=== PATIENT | female | born 1945 | race Caucasian/White ===

== ENCOUNTER 2025-01-31 17:02 | Inpatient (IN) ==
--- NOTE | 2025-01-31 17:10 | Emergency Department Note ---
Impression & Plan Fall from standing, Multiple fractures of ribs, Intractable pain ED Provider Note HISTORY OF PRESENT ILLNESS: Patient is a 79-year-old female presenting with left posterior rib pain and left flank pain after a fall. Patient reports she was in the bathroom and gotten up from the toilet when she lost her footing secondary to her shoe and fell, landing and striking the left side of her body on the commode. Denies striking her head or loss of consciousness. She is not on anticoagulation or antiplatelet therapy. She had significant excruciating pain in her left flank and family called 911. Patient denies any numbness or tingling down her back. Currently complains of pain in her left lower posterior chest and down her left flank. Patient reports she is from [place] and is currently in town visiting her daughter. ROS: as above PHYSICAL EXAM: Primary Survey Airway: Intact Breathing: Normal, breath sounds equal bilaterally Circulation: Skin warm, distal pulses 2+, capillary refill less than 2 seconds Disability Pupils: Equal and reactive to light, 3 mm, brisk GCS: 15, E = 4, V=5, M= 6 Motor Function: Moves all extremities. Sensory: No deficits Secondary Survey GEN: Well developed and well-nourished HENT: Head: No external signs of trauma. Mouth/Throat: Midface stable. No malocclusion. Eyes: EOMI. Pupils are 3 mm, round and reactive bilaterally. Neck: No midline C-spine tenderness. No step-offs. Cardiovascular: RRR. Pulses present in all 4 extremities. Pulmonary/Chest: BS equal bilaterally. Patient has reproducible tenderness palpation to the left posterior lateral rib cage without any evidence of flail chest. There is some overlying ecchymosis to this area but no underlying hematoma palpable. No palpable free air in the soft tissues of the chest wall. Abdomen: No tenderness or ecchymosis. Musculoskeletal: Pelvis: No instability. Back: No midline tenderness. No step-offs or deformities. Extremities: No gross deformities. No TTP. Skin: No laceration. No abrasion. Neuro: No focal neurological deficits. GCS as above. Psych: Normal mood and affect. MDM: - Vitals signs showed hypertension and tachycardia. - History obtained via patient. History as above. - Chronic conditions affecting care: None - Differential diagnoses include, but are not limited to: pneumothorax; hemothorax; pulmonary contusion; rib fractures; retroperitoneal bleed; liver splenic laceration - Order placed for continuous cardiac monitoring. At this time, monitor showed rate of 95 bpm with normal sinus rhythm, per my interpretation. - External medical records reviewed. - EKG image interpreted by myself showed normal sinus rhythm. Rate 89 bpm. QT 374. No acute ischemic changes. - Laboratory workup interpreted by myself showed slight leukocytosis (WBC 11.21); normal PT/INR; normal electrolytes; normal lipase - CXR image reviewed by myself is negative for pneumothorax, per my interpretation. - Patient initially given 50 mcg IV fentanyl for pain control, but on reassessment she is still complaining of significant pain. Given 4 mg IV Zofran and 0.5 mg of IV Dilaudid. However, about 15 minutes later she is still complaining of significant left-sided pain. She is given 1 mg of IV Dilaudid, but shortly after her oxygen saturation dropped into the 80s and she was placed on 2 L of supplemental oxygen. Her pain was initially well-controlled but then she started to complain of pain again. She is on 1 g of IV Tylenol, 0.5 mg IV Dilaudid and a lidocaine patch. - CT head wo contrast negative for acute intracranial pathology. - CT cervical spine wo contrast negative for acute traumatic injury. - CT chest with IV contrast showed left 7th through 11th rib fractures. No underlying hemothorax or pneumothorax. - CT abdomen/pelvis with IV contrast showed left-sided 10th through 11th posterior rib fractures with fragmentation of the 12th rib level. - Incentive spirometry ordered. - Discussed results with the patient. Discussed that she had 5 consecutive rib fractures, and per trauma protocols it would be recommended that she be transferred to a tertiary care facility for further evaluation and monitoring. However, after discussion of the potential complications of her multiple rib fractures, including development of atelectasis or pneumonia, pneumothorax or hemothorax development, or potential need for surgery, or , the patient declined transfer. She would prefer to be admitted here at [facility] for pain management and further monitoring. She did clearly express and communicate her understanding of the risks of potential complication, and she was still requesting to be admitted here for her pain control and further management. - Given patient's significant number for rib fractures and age, discussed case with ICU PANFILO, Aris Zazueta for admission to ICU for monitoring. - Discussion was had with case supervisor about patient's case and need for admission - Hospitalist, Dr. Casillas, consulted for admission - [facility]. I have personally spent 56 minutes of critical care time in the direct management of this patient. This includes bedside care, interpretation of diagnostic studies, and testing, discussion with consultants, patient, and family members, and other required patient management activities. This 56 minutes is in excess of all separately billable procedures. ASSESSMENT AND PLAN: Diagnosis: fall from standing; multiple rib fractures; intractable pain Plan: admit Past Med/Surg History Problem List (Updated 01/31/25 @ 21:06 by Esperanza De Luna MD) Intractable pain (Acute) Multiple fractures of ribs (Acute) Fall from standing (Acute) Social History Smoking Status: Former smoker Feels Safe at Home: Yes Allergies Allergies Allergy/AdvReac Type Severity Reaction Status Date / Time celecoxib [From Celebrex] Allergy Severe Rash Unverified 01/31/25 18:38 Home Meds Home Medications Medication Instructions Recorded Confirmed citalopram 10 mg tablet 10 mg PO QAM 01/31/25 01/31/25 estradiol 0.01% (0.1 mg/gram) 1 appful vaginal 2XWK 01/31/25 01/31/25 vaginal cream ibuprofen 200 mg tablet (Advil) 200 mg PO Q6H PRN Pain 01/31/25 01/31/25 lisinopril 5 mg tablet 5 mg PO QDL 01/31/25 01/31/25 omeprazole 40 mg capsule,delayed 40 mg PO QAM 01/31/25 01/31/25 release Results & Data (ED) Vital Signs Vital Signs - 24 hr 01/31/25 17:02 01/31/25 17:09 01/31/25 17:10 Temperature 36.8 C Temperature Source Oral Pulse Rate 92 H Pulse Rate from SpO2 Sensor Respiratory Rate 24 Respiratory Effort / Characteristics Non-Labored Spontaneous Respiratory Depth Normal Respiratory Pattern Regular Blood Pressure 163/89 H 163/89 H Blood Pressure Mean 113 105 Pulse Oximetry 95 95 Oxygen Delivery Method Room Air Room Air Oxygen Flow Rate Sepsis Recent Fever Within 48 Hours No Sepsis New/Unexplained Change in Mental Status N/A Sepsis Action Taken by Nursing No Action Required Oxygen Flow Rate - Titration Pulse Oximetry Post Tiitration 01/31/25 17:12 01/31/25 17:23 01/31/25 18:06 Temperature Temperature Source Pulse Rate 92 H 91 H Pulse Rate from SpO2 Sensor 91 H Respiratory Rate 21 Respiratory Effort / Characteristics Respiratory Depth Respiratory Pattern Blood Pressure 154/76 H Blood Pressure Mean 102 Pulse Oximetry 94 Oxygen Delivery Method Room Air Oxygen Flow Rate Sepsis Recent Fever Within 48 Hours Sepsis New/Unexplained Change in Mental Status Sepsis Action Taken by Nursing Oxygen Flow Rate - Titration Pulse Oximetry Post Tiitration 01/31/25 18:30 01/31/25 18:32 01/31/25 18:33 Temperature Temperature Source Pulse Rate 92 H 92 H Pulse Rate from SpO2 Sensor 103 H Respiratory Rate 16 16 Respiratory Effort / Characteristics Respiratory Depth Respiratory Pattern Blood Pressure 117/58 L Blood Pressure Mean 67 Pulse Oximetry 98 86 L 98 Oxygen Delivery Method Nasal Cannula Room Air Oxygen Flow Rate 2 Sepsis Recent Fever Within 48 Hours Sepsis New/Unexplained Change in Mental Status Sepsis Action Taken by Nursing Oxygen Flow Rate - Titration 2 Pulse Oximetry Post Tiitration 98 01/31/25 19:00 01/31/25 19:30 Temperature Temperature Source Pulse Rate 103 H 95 H Pulse Rate from SpO2 Sensor 102 H 95 H Respiratory Rate 18 11 L Respiratory Effort / Characteristics Respiratory Depth Respiratory Pattern Blood Pressure 136/90 107/65 Blood Pressure Mean 105 79 Pulse Oximetry 98 97 Oxygen Delivery Method Nasal Cannula Nasal Cannula Oxygen Flow Rate 2 2 Sepsis Recent Fever Within 48 Hours Sepsis New/Unexplained Change in Mental Status Sepsis Action Taken by Nursing Oxygen Flow Rate - Titration Pulse Oximetry Post Tiitration Laboratory Data 01/31/25 17:12 01/31/25 17:12 Lab Results 01/31/25 01/31/25 Range/Units 17:12 17:16 WBC 11.21 H (4.8-10.8) K/ul RBC 4.16 L (4.20-5.40) M/uL Hgb 13.8 (12.0-16.0) g/dl POC Hgb 14.6 (12.0-16.0) g/dl Hct 40.8 (37.0-47.0) % POC Hct 43 (37-47) % MCV 98.1 (80.0-100.0) fL MCH 33.2 (25.0-34.0) pg MCHC 33.8 (32.0-36.0) g/dL RDW Std Deviation 42.5 (36.4-46.3) fL RDW Coeff of Riley 11.9 (11.5-14.5) % Plt Count 248 (130-400) K/uL MPV 10.2 (9.4-12.4) fL Immature Gran % (Auto) 0.6 % Neut % (Auto) 67.2 % Lymph % (Auto) 24.0 % [place] % (Auto) 6.9 % Eos % (Auto) 0.7 % Baso % (Auto) 0.6 % Neut # (Auto) 7.53 H (1.40-6.50) K/uL Lymph # (Auto) 2.69 (1.20-3.40) K/uL [place] # (Auto) 0.77 H (0.11-0.59) K/uL Eos # (Auto) 0.08 (0.00-0.50) K/uL Baso # (Auto) 0.07 (0.00-0.20) K/uL Immature Gran # (Auto) 0.07 (0.01-0.20) K/uL PT 10.5 (9.0-12.0) Seconds INR 1.0 (0.9-1.1) APTT 21 (21-31) Seconds PTT Ratio 0.8 POC Sodium 135 (135-144) mmol/L Sodium 135 L (136-145) mmol/L POC Potassium 4.0 (3.3-5.0) mmol/L Potassium 4.2 (3.5-5.1) mmol/L POC Chloride 105 (101-112) mmol/L Chloride 100 (98-107) mmol/L Carbon Dioxide 25 (21-32) mmol/L POC Total CO2 22 L (24-31) mmol/L Anion Gap 10 (3-11) POC Anion Gap 13.0 L (16-25) mmol/L POC BUN 24 H (7-18) mg/dl BUN 24 H (6-23) mg/dl Creatinine 0.68 (0.6-1.2) mg/dl POC Creatinine 0.7 (0.6-1.3) mg/dl Est Cr Clr Drug Dosing 64.3 ml/min eGFR 89.64 BUN/Creatinine Ratio 35.3 H (10-20) Glucose 123 H (70-99(Fasting)) mg/dl POC Glucose (other) 121 H (70-99) mg/dl Calcium 9.4 (8.6-10.3) mg/dl POC Ioniz Calcium Maida 1.04 L (1.12-1.32) mmol/l Total Bilirubin 0.4 (0.2-1.0) mg/dl AST 24 (13-39) U/L ALT 14 (7-52) U/L Alkaline Phosphatase 66 (34-104) U/L Total Protein 7.4 (6.0-8.3) gm/dl Albumin 4.4 (3.4-5.0) gm/dl Globulin 3.0 (2.5-4.0) gm/dl Albumin/Globulin Ratio 1.5 (0.9-2) Lipase 50 (11-82) U/L Administered Medications Discontinued Medications Fentanyl Citrate (Fentanyl Citrate Pf 100 Mcg/2 Ml Vial) 50 mcg IV NOW STA Stop: 01/31/25 17:09 Last Admin: 01/31/25 17:19 Dose: 50 mcg Documented By: NATHAN Hydromorphone HCl (Hydromorphone Inj 0.5 Mg/0.5 Ml Syr) 0.5 mg IV NOW STA Stop: 01/31/25 17:36 Last Admin: 01/31/25 17:39 Dose: 0.5 mg Documented By: JAG Hydromorphone HCl (Hydromorphone Inj 1 Mg/Ml Syringe) 1 mg IV NOW STA Stop: 01/31/25 18:12 Last Admin: 01/31/25 18:14 Dose: 1 mg Documented By: GILL Hydromorphone HCl (Hydromorphone Inj 0.5 Mg/0.5 Ml Syr) 0.5 mg IV NOW STA Stop: 01/31/25 20:25 Last Admin: 01/31/25 20:31 Dose: 0.5 mg Documented By: GILL Acetaminophen (Ofirmev) 1,000 mg in 100 mls @ 400 mls/hr IV NOW STA Stop: 01/31/25 20:38 Last Infusion: 01/31/25 21:01 Dose: Infused Documented By: Admin: 01/31/25 20:31 Dose: 400 mls/hr Documented By: GILL Ioversol (Optiray 320 100ml) 93 ml IV ONCE ONE Stop: 01/31/25 18:00 Last Admin: 01/31/25 17:59 Dose: 93 ml Documented By: YUE Lidocaine (Lidocaine 5% 1 Patch) 1 patch TD NOW STA Stop: 01/31/25 20:25 Last Admin: 01/31/25 20:31 Dose: 1 patch Documented By: GILL Ondansetron HCl (Ondansetron Inj 2 Mg/Ml 2 Ml Vial) 4 mg IV NOW STA Stop: 01/31/25 17:36 Last Admin: 01/31/25 17:39 Dose: 4 mg Documented By: JAG Imaging Data Radiologist's Impression: Abdomen/Pelvis CT 01/31/25 17:09 EXAM: CT abd pelvis IV con only CLINICAL HISTORY: Trauma TECHNIQUE: CT of the abdomen and pelvis was performed without and with 93 ml optiray 320 contrast, with the following protocol: axial images, and reconstructed coronal and sagittal images. One of the following dose reduction techniques was utilized for this exam: Automated exposure control, adjustment of the mA and/or kV according to patient size, and use of iterative reconstruction. COMPARISON: None. FINDINGS: Abdomen: Liver: Mildly enlarged in size (18 cm in right lobe span), no focal lesion noted. No focal lesions, cysts, or masses were identified. Hepatic vasculature and biliary ducts are unremarkable. Gallbladder and Biliary System: The gallbladder is normal in size and shape. No wall thickening, pericholecystic fluid, or gallstones were identified. The common bile duct is normal in caliber without dilation. Pancreas: Pancreatic head, body, and tail are visualized and appear normal in size and density. No pancreatic masses or calcifications were noted. The pancreatic duct is not dilated. Spleen: Normal in size, shape, and density. No splenic lesions or masses were identified. Appendix: The appendix is normal in size without periappendiceal fat stranding and without an appendicolith. No evidence of appendiceal abscess or perforation. Kidneys and Adrenal Glands: Both kidneys are normal in size, shape, and position. Cortical thickness is within normal limits. No renal calculi or hydronephrosis. Nodular thickening of the left adrenal gland was noted. A small umbilical hernia harboring omental fat was noted. Pelvis: Urinary Bladder: Normal in contour and wall thickness. No intraluminal lesions identified. Uterus: Normal in size and contour. No masses or abnormal thickening. Ovaries: Not well visualized, but no gross abnormalities noted. Vagina: Vaginal pessary ring noted. Peritoneal and Retroperitoneal Structures: No free fluid or abnormal fluid collections were identified within the abdomen or pelvis. No lymphadenopathy was noted. Bowel: Multiple colonic diverticulosis with no signs of diverticulitis noted. Large duodenal diverticulum related to the third part of the duodenum with an air-fluid level noted. Mild proximal jejunal loop dilation reaching 29 mm in cross-section with no obstructing mass depicted. Bones and Soft Tissues: Left T12, T11, and T10 posterior rib fractures with fragmentation at the T12 level noted. Moderate spondylosis of the lumbar spine with marginal osteophytosis and right-sided scoliosis noted. Pelvic bones and soft tissues are unremarkable. No fractures or abnormal masses were identified. Minimal left-sided pleural effusion noted. IMPRESSION: 1. Left T12, T11, and T10 posterior rib fractures with fragmentation at the T12 level noted. 2. Moderate spondylosis of the lumbar spine with marginal osteophytosis and right-sided scoliosis noted. 3. Mild hepatomegaly noted. 4. Colonic diverticulosis with no signs of diverticulitis. 5. Evidence of duodenal diverticulum related to the 3rd part of the duodenum. Electronically signed by Kwabena Severino 01-31-2025 7:[address] 01/31/25 17:09 EXAM: CT cervical spine wo con CLINICAL HISTORY: Trauma. TECHNIQUE: CT scan of the cervical spine was performed without the administration of intravenous contrast. Contiguous axial images were obtained from the skull base to the upper thoracic spine. Coronal and sagittal reformatted images were also reviewed. One of the following dose reduction techniques was utilized for this exam. Automated exposure control, adjustment of the mA and/or kV according to patient size, and use of iterative reconstruction. COMPARISON: No previous studies are available for comparison. FINDINGS: Vertebrae: Marked spondylosis of the cervical spine noted. The vertebral bodies are normal in height and alignment. No evidence of acute fracture or dislocation. The cortical and trabecular bone patterns are normal. No signs of lytic or sclerotic lesions. Normal configuration of the posterior elements. Intervertebral Discs: C3-4 mild posterolateral disc/osteophyte protrusion is seen abutting the ventral theca with mild left side exit neural foraminal encroachment. C4-5 mild posterolateral disc/osteophyte protrusion is seen abutting the ventral theca with mild left side exit neural foraminal encroachment. C5-6 posterior disc/osteophyte protrusion is seen abutting the ventral theca with mild to moderate bilateral exit neural foraminal encroachment. C6-7 posterior disc/osteophyte protrusion abutting the ventral theca with right side exit neural foraminal compromise. 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 Neural Foramina: The neural foramina are patent bilaterally at all levels. No evidence of foraminal narrowing or nerve root compression. Prevertebral Soft Tissues: The prevertebral soft tissues are normal in thickness without evidence of mass or abnormal fluid collection. Additional Findings: No other significant findings are noted in the visualized soft tissue structures or bony elements. IMPRESSION: 1. Marked spondylolysis of the cervical spine. 2. Multilevel degenerative disc protrusions noted. 3. 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 4. No acute fracture. Electronically signed by Kwabena Severino 01-31-2025 7:[address] 01/31/25 17:09 EXAM: CT chest diagnostic w con CLINICAL HISTORY: Trauma. TECHNIQUE: Contiguous 3.[address] images of the chest were acquired with administration of 93ml Opitray-320mg/ml intravenous contrast. Coronal and sagittal reconstructions were obtained. One of the following dose reduction techniques was utilized for this exam: Automated exposure control, adjustment of the mA and/or kV according to patient size, and use of iterative reconstruction COMPARISON: 01/31/2025 16:26:00 LEACHER CXR. FINDINGS: Lungs: Lungs are clear with no evidence of consolidation, collapse, or focal lesions. No ground-glass opacities or interstitial changes. Mediastinum: No mediastinal mass or abnormal lymphadenopathy. Normal appearance of the thymus. Hilar Structures: Normal size and configuration, no enlargement. Heart and Great Vessels: Normal heart size and configuration. No pericardial effusion. Normal caliber and course of the thoracic aorta and other great vessels. No significant atherosclerosis or aneurysm. Normal enhancement of the great vessels post-contrast. Pulmonary Arteries: No evidence of pulmonary embolism. Normal size and course of the pulmonary arteries. Esophagus: Normal course and caliber. No masses or dilatation. Bones: No fractures or lytic/sclerotic lesions. Normal bone density and alignment. No evidence of rib fractures. Chest Wall: Left posterior ninth rib incomplete fracture Simple displaced fracture of the left posterior and the lateral 10th and 11th ribs. Left lateral 7th and 8th rib nondisplaced fracture. Comminuted fracture of the left posterior 11th rib near the transverse vertebral process . Left anterior 3rd to 5th ribs old healed fractures. Mild spondylosis of the scanned vertebrae. Upper Abdomen: Visualized portions of the liver, spleen, pancreas, adrenal glands, and kidneys are normal. No abnormalities noted in the visualized upper abdominal organs. Thyroid: Normal size and morphology. No nodules or masses. IMPRESSION: 1. Left posterior ninth rib incomplete fracture. 2. Simple displaced fracture of the left posterior and the lateral 10th and 11th ribs. 3. Left lateral 7th and 8th rib nondisplaced fracture. 4. Comminuted fracture of the left posterior 11th rib near the transverse vertebral process. 5. Left pleural mild thickening. 6. The CT confirms and details the CXR findings. Electronically signed by Kwabena Severino 01-31-2025 7:51 PM Chest X-Ray 01/31/25 17:09 EXAM: XR chest 1V portable CLINICAL HISTORY: Trauma TECHNIQUE: An X-ray image of the chest is obtained in AP projection. COMPARISON: No prior studies are available for comparison. FINDINGS: Pulmonary Parenchyma: Lungs are clear bilaterally. No evidence of consolidation, collapse, or focal opacities. No pulmonary nodules are identified. No evidence of pleural effusion or pleural thickening. Heart and Mediastinum: Heart size and shape are normal. Mild hilar vascular congestion noted No mediastinal widening or masses. No hilar or mediastinal lymphadenopathy. Bony Thorax: Minimally displaced fracture of the left 9th and 10th rib laterally. Intact left shoulder joint arthroplasty noted. Right shoulder degenerative changes noted. Soft Tissues: Soft tissues overlying the chest wall are unremarkable. IMPRESSION: Minimally displaced fracture of the left 9th and 10th rib laterally. DISCLAIMER:A subtle bone abnormality or fracture may not be readily apparent on x-rays, thus clinical correlation and further imaging including follow up CT, MRI, or follow up x-rays are advised as needed. Electronically signed by Kwabena Severino 01-31-2025 6:[address] 01/31/25 17:09 EXAM: CT head/brain wo con CLINICAL HISTORY: trauma. TECHNIQUE: Axial non-contrast CT scan of the brain was performed from the skull base to the high parietal region. One of the following dose reduction techniques were utilized for this exam: Automated exposure control, adjustment of the mA and/or kV according to patient size, use of iterative reconstruction. COMPARISON: None. FINDINGS: Brain Parenchyma: Age-appropriate cortical changes are evident by mildly dilated sulci and ventricles. Accentuated periventricular hypodensity with tiny ill-defined foci seen at the bilateral centrum semioval and watershed areas indicating deep white matter microvascular ischemia. Normal attenuation of the cerebral hemispheres, cerebellum, and brainstem. No evidence of acute infarct, hemorrhage, or mass effect. No abnormal areas of hypo- or hyperattenuation. No evidence of hydrocephalus or ventricular enlargement. No evidence of subarachnoid hemorrhage or extra-axial fluid collections. Cerebellum and Brainstem: No masses, lesions, or areas of abnormal density. Orbits: Normal appearance of the globes, optic nerves, and extraocular muscles. No evidence of orbital masses or abnormal density. Sinuses: Clear paranasal sinuses. No evidence of sinusitis or mucosal thickening. Mastoid Air Cells: Clear mastoid air cells. No evidence of mastoiditis. Skull: Hyperostosis frontalis interna IMPRESSION: 1. No CT signs of intracranial acute traumatic changes. 2. Mild age-appropriate cortical changes with deep white matter microvascular ischemia. Electronically signed by Kwabena Severino 01-31-2025 7:36 PM Discharge Plan Visit Data Chief Complaint: Fall ED Provider: Esperanza De Luna Discharge Problem: Fall from standing, Multiple fractures of ribs, Intractable pain Condition: Serious Forms Stand Alone Forms: [facility] [employer] Prescriptions Prescriptions: No Action citalopram 10 mg tablet 10 mg PO QAM omeprazole 40 mg capsule,delayed release(DR/EC) 40 mg PO QAM ibuprofen [Advil] 200 mg Tablet 200 mg PO Q6H PRN (Reason: Pain) lisinopril 5 mg tablet 5 mg PO QDL estradiol 0.01 % (0.1 mg/gram) Cream 1 appful VAGINAL 2XWK Rx Instructions: Estradiol 0.01% Vag Crm (paraban/PG free) Referrals Referrals: PCP,NO [Primary Care Provider] -
[2025-01-31 17:32] LABS: Hematocrit (blood only) 40.8 % (37.0-47.0); Hemoglobin 13.8 g/dl (12.0-16.0); Immature Granulocytes # (auto) 0.07 K/uL (0.01-0.20); Immature Granulocytes % (auto) 0.6 %; Mean Corpuscular Hemoglobin 33.2 pg (25.0-34.0); Mean Corpuscular Volume 98.1 fL (80.0-100.0); Platelet Count 248 K/uL (130-400); RDW Standard Deviation 42.5 fL (36.4-46.3); Red Blood Count 4.16 M/uL (4.20-5.40); White Blood Count 11.21 K/ul (4.8-10.8)
[2025-01-31] MEDS: HYDROmorphone INJ 0.5 MG/0.5 ML SYR IV STA ×2 (17:39→20:31)
[2025-01-31] MEDS: ONDANSETRON INJ 2 MG/ML 2 ML VIAL IV STA (17:39)
[2025-01-31 17:51] LABS: Alanine Aminotransferase 14.0 U/L (7-52); Albumin Globulin Ratio 1.5 (0.9-2); Alkaline Phosphatase 66.0 U/L (34-104); Anion Gap 10.0 (3-11); Bilirubin,Total 0.4 mg/dl (0.2-1.0); Blood Urea Nitrogen 24.0 mg/dl (6-23); Calcium 9.4 mg/dl (8.6-10.3); Carbon Dioxide 25.0 mmol/L (21-32); Chloride 100.0 mmol/L (98-107); Creatinine Clr Calc Pharmacy 64.3 ml/min; Globulin 3.0 gm/dl (2.5-4.0); Glucose 123.0 mg/dl (70-99(Fasting)); Lipase 50.0 U/L (11-82); Potassium 4.2 mmol/L (3.5-5.1); Sodium 135.0 mmol/L (136-145); Total Protein 7.4 gm/dl (6.0-8.3)
[2025-01-31] MEDS: OPTIRAY 320 100ml IV ONE (17:59)
[2025-01-31 18:05] LABS: INR 1.0 (0.9-1.1); Partial Thromboplastin Time 21 Seconds (21-31); Prothrombin Time 10.5 Seconds (9.0-12.0)
[2025-01-31] MEDS: HYDROmorphone INJ 1 MG/ML SYRINGE IV STA (18:14)
--- NOTE | 2025-01-31 18:42 | XRay Report ---
EXAM: XR chest 1V portable CLINICAL HISTORY: Trauma TECHNIQUE: An X-ray image of the chest is obtained in AP projection. COMPARISON: No prior studies are available for comparison. FINDINGS: Pulmonary Parenchyma: Lungs are clear bilaterally. No evidence of consolidation, collapse, or focal opacities. No pulmonary nodules are identified. No evidence of pleural effusion or pleural thickening. Heart and Mediastinum: Heart size and shape are normal. Mild hilar vascular congestion noted No mediastinal widening or masses. No hilar or mediastinal lymphadenopathy. Bony Thorax: Minimally displaced fracture of the left 9th and 10th rib laterally. Intact left shoulder joint arthroplasty noted. Right shoulder degenerative changes noted. Soft Tissues: Soft tissues overlying the chest wall are unremarkable. IMPRESSION: Minimally displaced fracture of the left 9th and 10th rib laterally. DISCLAIMER:A subtle bone abnormality or fracture may not be readily apparent on x-rays, thus clinical correlation and further imaging including follow up CT, MRI, or follow up x-rays are advised as needed. Electronically signed by Kwabena Severino 01-31-2025 6:41 PM
--- NOTE | 2025-01-31 19:37 | CT Scan Report ---
EXAM: CT head/brain wo con CLINICAL HISTORY: trauma. TECHNIQUE: Axial non-contrast CT scan of the brain was performed from the skull base to the high parietal region. One of the following dose reduction techniques were utilized for this exam: Automated exposure control, adjustment of the mA and/or kV according to patient size, use of iterative reconstruction. COMPARISON: None. FINDINGS: Brain Parenchyma: Age-appropriate cortical changes are evident by mildly dilated sulci and ventricles. Accentuated periventricular hypodensity with tiny ill-defined foci seen at the bilateral centrum semioval and watershed areas indicating deep white matter microvascular ischemia. Normal attenuation of the cerebral hemispheres, cerebellum, and brainstem. No evidence of acute infarct, hemorrhage, or mass effect. No abnormal areas of hypo- or hyperattenuation. No evidence of hydrocephalus or ventricular enlargement. No evidence of subarachnoid hemorrhage or extra-axial fluid collections. Cerebellum and Brainstem: No masses, lesions, or areas of abnormal density. Orbits: Normal appearance of the globes, optic nerves, and extraocular muscles. No evidence of orbital masses or abnormal density. Sinuses: Clear paranasal sinuses. No evidence of sinusitis or mucosal thickening. Mastoid Air Cells: Clear mastoid air cells. No evidence of mastoiditis. Skull: Hyperostosis frontalis interna IMPRESSION: 1. No CT signs of intracranial acute traumatic changes. 2. Mild age-appropriate cortical changes with deep white matter microvascular ischemia. Electronically signed by Kwabena Severino 01-31-2025 7:36 PM
--- NOTE | 2025-01-31 19:51 | CT Scan Report ---
EXAM: CT chest diagnostic w con CLINICAL HISTORY: Trauma. TECHNIQUE: Contiguous 3.[address] images of the chest were acquired with administration of 93ml Opitray-320mg/ml intravenous contrast. Coronal and sagittal reconstructions were obtained. One of the following dose reduction techniques was utilized for this exam: Automated exposure control, adjustment of the mA and/or kV according to patient size, and use of iterative reconstruction COMPARISON: 01/31/2025 16:26:00 [employer] CXR. FINDINGS: Lungs: Lungs are clear with no evidence of consolidation, collapse, or focal lesions. No ground-glass opacities or interstitial changes. Mediastinum: No mediastinal mass or abnormal lymphadenopathy. Normal appearance of the thymus. Hilar Structures: Normal size and configuration, no enlargement. Heart and Great Vessels: Normal heart size and configuration. No pericardial effusion. Normal caliber and course of the thoracic aorta and other great vessels. No significant atherosclerosis or aneurysm. Normal enhancement of the great vessels post-contrast. Pulmonary Arteries: No evidence of pulmonary embolism. Normal size and course of the pulmonary arteries. Esophagus: Normal course and caliber. No masses or dilatation. Bones: No fractures or lytic/sclerotic lesions. Normal bone density and alignment. No evidence of rib fractures. Chest Wall: Left posterior ninth rib incomplete fracture Simple displaced fracture of the left posterior and the lateral 10th and 11th ribs. Left lateral 7th and 8th rib nondisplaced fracture. Comminuted fracture of the left posterior 11th rib near the transverse vertebral process . Left anterior 3rd to 5th ribs old healed fractures. Mild spondylosis of the scanned vertebrae. Upper Abdomen: Visualized portions of the liver, spleen, pancreas, adrenal glands, and kidneys are normal. No abnormalities noted in the visualized upper abdominal organs. Thyroid: Normal size and morphology. No nodules or masses. IMPRESSION: 1. Left posterior ninth rib incomplete fracture. 2. Simple displaced fracture of the left posterior and the lateral 10th and 11th ribs. 3. Left lateral 7th and 8th rib nondisplaced fracture. 4. Comminuted fracture of the left posterior 11th rib near the transverse vertebral process. 5. Left pleural mild thickening. 6. The CT confirms and details the CXR findings. Electronically signed by Kwabena Severino 01-31-2025 7:51 PM
--- NOTE | 2025-01-31 19:52 | CT Scan Report ---
EXAM: CT abd pelvis IV con only CLINICAL HISTORY: Trauma TECHNIQUE: CT of the abdomen and pelvis was performed without and with 93 ml optiray 320 contrast, with the following protocol: axial images, and reconstructed coronal and sagittal images. One of the following dose reduction techniques was utilized for this exam: Automated exposure control, adjustment of the mA and/or kV according to patient size, and use of iterative reconstruction. COMPARISON: None. FINDINGS: Abdomen: Liver: Mildly enlarged in size (18 cm in right lobe span), no focal lesion noted. No focal lesions, cysts, or masses were identified. Hepatic vasculature and biliary ducts are unremarkable. Gallbladder and Biliary System: The gallbladder is normal in size and shape. No wall thickening, pericholecystic fluid, or gallstones were identified. The common bile duct is normal in caliber without dilation. Pancreas: Pancreatic head, body, and tail are visualized and appear normal in size and density. No pancreatic masses or calcifications were noted. The pancreatic duct is not dilated. Spleen: Normal in size, shape, and density. No splenic lesions or masses were identified. Appendix: The appendix is normal in size without periappendiceal fat stranding and without an appendicolith. No evidence of appendiceal abscess or perforation. Kidneys and Adrenal Glands: Both kidneys are normal in size, shape, and position. Cortical thickness is within normal limits. No renal calculi or hydronephrosis. Nodular thickening of the left adrenal gland was noted. A small umbilical hernia harboring omental fat was noted. Pelvis: Urinary Bladder: Normal in contour and wall thickness. No intraluminal lesions identified. Uterus: Normal in size and contour. No masses or abnormal thickening. Ovaries: Not well visualized, but no gross abnormalities noted. Vagina: Vaginal pessary ring noted. Peritoneal and Retroperitoneal Structures: No free fluid or abnormal fluid collections were identified within the abdomen or pelvis. No lymphadenopathy was noted. Bowel: Multiple colonic diverticulosis with no signs of diverticulitis noted. Large duodenal diverticulum related to the third part of the duodenum with an air-fluid level noted. Mild proximal jejunal loop dilation reaching 29 mm in cross-section with no obstructing mass depicted. Bones and Soft Tissues: Left T12, T11, and T10 posterior rib fractures with fragmentation at the T12 level noted. Moderate spondylosis of the lumbar spine with marginal osteophytosis and right-sided scoliosis noted. Pelvic bones and soft tissues are unremarkable. No fractures or abnormal masses were identified. Minimal left-sided pleural effusion noted. IMPRESSION: 1. Left T12, T11, and T10 posterior rib fractures with fragmentation at the T12 level noted. 2. Moderate spondylosis of the lumbar spine with marginal osteophytosis and right-sided scoliosis noted. 3. Mild hepatomegaly noted. 4. Colonic diverticulosis with no signs of diverticulitis. 5. Evidence of duodenal diverticulum related to the 3rd part of the duodenum. Electronically signed by Kwabena Severino 01-31-2025 7:52 PM
--- NOTE | 2025-01-31 19:55 | CT Scan Report ---
EXAM: CT cervical spine wo con CLINICAL HISTORY: Trauma. TECHNIQUE: CT scan of the cervical spine was performed without the administration of intravenous contrast. Contiguous axial images were obtained from the skull base to the upper thoracic spine. Coronal and sagittal reformatted images were also reviewed. One of the following dose reduction techniques was utilized for this exam. Automated exposure control, adjustment of the mA and/or kV according to patient size, and use of iterative reconstruction. COMPARISON: No previous studies are available for comparison. FINDINGS: Vertebrae: Marked spondylosis of the cervical spine noted. The vertebral bodies are normal in height and alignment. No evidence of acute fracture or dislocation. The cortical and trabecular bone patterns are normal. No signs of lytic or sclerotic lesions. Normal configuration of the posterior elements. Intervertebral Discs: C3-4 mild posterolateral disc/osteophyte protrusion is seen abutting the ventral theca with mild left side exit neural foraminal encroachment. C4-5 mild posterolateral disc/osteophyte protrusion is seen abutting the ventral theca with mild left side exit neural foraminal encroachment. C5-6 posterior disc/osteophyte protrusion is seen abutting the ventral theca with mild to moderate bilateral exit neural foraminal encroachment. C6-7 posterior disc/osteophyte protrusion abutting the ventral theca with right side exit neural foraminal compromise. 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 Neural Foramina: The neural foramina are patent bilaterally at all levels. No evidence of foraminal narrowing or nerve root compression. Prevertebral Soft Tissues: The prevertebral soft tissues are normal in thickness without evidence of mass or abnormal fluid collection. Additional Findings: No other significant findings are noted in the visualized soft tissue structures or bony elements. IMPRESSION: 1. Marked spondylolysis of the cervical spine. 2. Multilevel degenerative disc protrusions noted. 3. 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 4. No acute fracture. Electronically signed by Kwabena Severino 01-31-2025 7:53 PM
[2025-01-31] MEDS: LIDOCAINE 5% 1 PATCH TD STA (20:31)
[2025-01-31] MEDS: ACETAMINOPHEN 1,000 MG/100 ML VIAL IV STA (20:31)
--- NOTE | 2025-01-31 21:01 | History & Physical Report ---
Date of Service January 31, 2025 Assessment & Plan (1) Acute hypoxemic respiratory failure: Plan: Assessment and plan below following discussion of case with ED provider and reviewing patient history/pertinent normal/abnormal diagnostic test results. Acute hypoxemic respiratory failure Multiple traumatic left rib fractures hypertension, BP currently stable daily alcohol intake, no obvious concerns as per patient/family Hyperglycemia rule out DM past tobacco abuse Admit to ICU for monitoring Supplemental O2 Baseline VBG Analgesia Encourage incentive spirometry General Surgery consultation re: traumatic left rib fractures (Dr. Peñaloza kindly agreed to to follow patient.) Check hemoglobin A1c PT OT eval DVT prophylaxis. SCDs Re: Traumatic chest wall ecchymosis Full code Patient daughter requesting updates and vitals. Ms. Audelia Austin, contact #[phone]. Text document was generated using [employer] voice recognition software. It may contain grammatical or spelling errors. Kindly contact undersigned for clarification of any documentation item in question. History of Present Illness Chief Complaint: Fall Primary Care Provider: Dr. Kong of [place], [place] History obtained from patient, family, and records. Medical history significant for hypertension, GERD, mood disorder, daily alcohol intake, past tobacco abuse. Patient is a resident of [place], [place] currently visiting daughter who resides locally. Patient lost her footing on her way to the bathroom leading to her falling down and hitting the toilet with the left side of her body. Pleuritic chest pain with some SOB. No hemoptysis. No head trauma or LOC. Patient had trouble getting up from pain. Patient transported to ER by EMS. Patient refused transfer to trauma center for evaluation and management of multiple rib fractures. Lowest O2 sats of 80s documented at the ER. Medical History as above Surgical History : Shoulder surgery, knee surgeries, cosmetic jaw surgery Family History : No heart disease, no DM Personal/Social history : Past tobacco abuse, daily EtOH intake denies abuse; retired schoolteacher Allergies Allergy/AdvReac Type Severity Reaction Status Date / Time celecoxib [From Celebrex] Allergy Severe Rash Unverified 01/31/25 18:38 Home Medications Medication Instructions Recorded Confirmed Type citalopram 10 mg tablet 10 mg PO QAM 01/31/25 01/31/25 History estradiol 0.01% (0.1 mg/gram) 1 appful vaginal 2XWK 01/31/25 01/31/25 History vaginal cream ibuprofen 200 mg tablet (Advil) 200 mg PO Q6H PRN Pain 01/31/25 01/31/25 History lisinopril 5 mg tablet 5 mg PO QDL 01/31/25 01/31/25 History omeprazole 40 mg capsule,delayed 40 mg PO QAM 01/31/25 01/31/25 History release Past Med/Surg History Problem List (Updated 02/01/25 @ 05:52 by Nikunj Casillas MD) Acute hypoxemic respiratory failure Acute pain Intractable pain (Acute) Multiple fractures of ribs (Acute) Fall from standing (Acute) Medical History (Updated 02/01/25 @ 05:52 by Nikunj Casillas MD) Anxiety and depression HTN (hypertension) Surgical History (Updated 02/01/25 @ 00:03 by MARCUS Granados) History of left shoulder replacement Social History Smoking Status: Never smoker Hx Alcohol Use: Yes Alcohol type: wine Hx Substance Use: No Preferred Language: Lao Communication Ability: Effective Conservation Educator Required: No Beliefs That Will Affect Care: None Current Living Situation: Alone Other Information That Helps Us Care for You: No Feels Safe at Home: Yes Safety Concerns: Feels Safe At This Time Assistive Devices: None Review of Systems Review of Systems: As per HPI, all other systems reviewed and negative Physical Exam Physical Exam: GENERAL: Slightly anxious, slightly uncomfortable, no respiratory distress SKIN: Normal color, warm HEENT: [place] palpebral conjunctivae, no ptosis, dry buccal mucosa NECK : Supple, no tenderness CHEST : Decreased breath sounds, left posterior chest wall tenderness HEART : RRR, no obvious murmurs ABDOMEN: Some distention, nontender EXTREMITIES : No LE swelling/tenderness, palpable pulses, no other conspicuous deformities noted NEUROLOGIC : Coherent, no facial asymmetry, no other gross focality Results & Data Results & Data Vital Signs (Past 12 Hours) Vital Signs Temp Pulse Resp BP Pulse Ox O2 Del Method O2 Flow Rate 01/31/25 19:30 95 H 11 L 107/65 97 Nasal Cannula 2 01/31/25 19:00 103 H 18 136/90 98 Nasal Cannula 2 01/31/25 18:33 92 H 16 98 01/31/25 18:32 86 L Room Air 01/31/25 18:30 92 H 16 117/58 L 98 Nasal Cannula 2 01/31/25 18:06 154/76 H 01/31/25 17:23 91 H 01/31/25 17:12 92 H 21 94 Room Air 01/31/25 17:10 163/89 H 01/31/25 17:09 95 Room Air 01/31/25 17:02 36.8 C 92 H 24 163/89 H 95 Room Air Laboratory Results Laboratory Results WBC 11.21 K/ul (4.8-10.8) H 01/31/25 17:12 RBC 4.16 M/uL (4.20-5.40) L 01/31/25 17:12 Hgb 13.8 g/dl (12.0-16.0) 01/31/25 17:12 POC Hgb 14.6 g/dl (12.0-16.0) 01/31/25 17:16 Hct 40.8 % (37.0-47.0) 01/31/25 17:12 POC Hct 43 % (37-47) 01/31/25 17:16 MCV 98.1 fL (80.0-100.0) 01/31/25 17:12 MCH 33.2 pg (25.0-34.0) 01/31/25 17:12 MCHC 33.8 g/dL (32.0-36.0) 01/31/25 17:12 RDW Std Deviation 42.5 fL (36.4-46.3) 01/31/25 17:12 RDW Coeff of Riley 11.9 % (11.5-14.5) 01/31/25 17:12 Plt Count 248 K/uL (130-400) 01/31/25 17:12 MPV 10.2 fL (9.4-12.4) 01/31/25 17:12 Immature Gran % (Auto) 0.6 % 01/31/25 17:12 Neut % (Auto) 67.2 % 01/31/25 17:12 Lymph % (Auto) 24.0 % 01/31/25 17:12 Kimball % (Auto) 6.9 % 01/31/25 17:12 Eos % (Auto) 0.7 % 01/31/25 17:12 Baso % (Auto) 0.6 % 01/31/25 17:12 Neut # (Auto) 7.53 K/uL (1.40-6.50) H 01/31/25 17:12 Lymph # (Auto) 2.69 K/uL (1.20-3.40) 01/31/25 17:12 Kimball # (Auto) 0.77 K/uL (0.11-0.59) H 01/31/25 17:12 Eos # (Auto) 0.08 K/uL (0.00-0.50) 01/31/25 17:12 Baso # (Auto) 0.07 K/uL (0.00-0.20) 01/31/25 17:12 Immature Gran # (Auto) 0.07 K/uL (0.01-0.20) 01/31/25 17:12 PT 10.5 Seconds (9.0-12.0) 01/31/25 17:12 INR 1.0 (0.9-1.1) 01/31/25 17:12 APTT 21 Seconds (21-31) 01/31/25 17:12 PTT Ratio 0.8 01/31/25 17:12 POC Sodium 135 mmol/L (135-144) 01/31/25 17:16 Sodium 135 mmol/L (136-145) L 01/31/25 17:12 POC Potassium 4.0 mmol/L (3.3-5.0) 01/31/25 17:16 Potassium 4.2 mmol/L (3.5-5.1) 01/31/25 17:12 POC Chloride 105 mmol/L (101-112) 01/31/25 17:16 Chloride 100 mmol/L (98-107) 01/31/25 17:12 Carbon Dioxide 25 mmol/L (21-32) 01/31/25 17:12 POC Total CO2 22 mmol/L (24-31) L 01/31/25 17:16 Anion Gap 10 (3-11) 01/31/25 17:12 POC Anion Gap 13.0 mmol/L (16-25) L 01/31/25 17:16 POC BUN 24 mg/dl (7-18) H 01/31/25 17:16 BUN 24 mg/dl (6-23) H 01/31/25 17:12 Creatinine 0.68 mg/dl (0.6-1.2) 01/31/25 17:12 POC Creatinine 0.7 mg/dl (0.6-1.3) 01/31/25 17:16 Est Cr Clr Drug Dosing 64.3 ml/min 01/31/25 17:12 eGFR 89.64 01/31/25 17:12 BUN/Creatinine Ratio 35.3 (10-20) H 01/31/25 17:12 Glucose 123 mg/dl (70-99(Fasting)) H 01/31/25 17:12 POC Glucose (other) 121 mg/dl (70-99) H 01/31/25 17:16 Calcium 9.4 mg/dl (8.6-10.3) 01/31/25 17:12 POC Ioniz Calcium Maida 1.04 mmol/l (1.12-1.32) L 01/31/25 17:16 Total Bilirubin 0.4 mg/dl (0.2-1.0) 01/31/25 17:12 AST 24 U/L (13-39) 01/31/25 17:12 ALT 14 U/L (7-52) 01/31/25 17:12 Alkaline Phosphatase 66 U/L (34-104) 01/31/25 17:12 Total Protein 7.4 gm/dl (6.0-8.3) 01/31/25 17:12 Albumin 4.4 gm/dl (3.4-5.0) 01/31/25 17:12 Globulin 3.0 gm/dl (2.5-4.0) 01/31/25 17:12 Albumin/Globulin Ratio 1.5 (0.9-2) 01/31/25 17:12 Lipase 50 U/L (11-82) 01/31/25 17:12 Impressions Abdomen/Pelvis CT 01/31/25 17:09 EXAM: CT abd pelvis IV con only CLINICAL HISTORY: Trauma TECHNIQUE: CT of the abdomen and pelvis was performed without and with 93 ml optiray 320 contrast, with the following protocol: axial images, and reconstructed coronal and sagittal images. One of the following dose reduction techniques was utilized for this exam: Automated exposure control, adjustment of the mA and/or kV according to patient size, and use of iterative reconstruction. COMPARISON: None. FINDINGS: Abdomen: Liver: Mildly enlarged in size (18 cm in right lobe span), no focal lesion noted. No focal lesions, cysts, or masses were identified. Hepatic vasculature and biliary ducts are unremarkable. Gallbladder and Biliary System: The gallbladder is normal in size and shape. No wall thickening, pericholecystic fluid, or gallstones were identified. The common bile duct is normal in caliber without dilation. Pancreas: Pancreatic head, body, and tail are visualized and appear normal in size and density. No pancreatic masses or calcifications were noted. The pancreatic duct is not dilated. Spleen: Normal in size, shape, and density. No splenic lesions or masses were identified. Appendix: The appendix is normal in size without periappendiceal fat stranding and without an appendicolith. No evidence of appendiceal abscess or perforation. Kidneys and Adrenal Glands: Both kidneys are normal in size, shape, and position. Cortical thickness is within normal limits. No renal calculi or hydronephrosis. Nodular thickening of the left adrenal gland was noted. A small umbilical hernia harboring omental fat was noted. Pelvis: Urinary Bladder: Normal in contour and wall thickness. No intraluminal lesions identified. Uterus: Normal in size and contour. No masses or abnormal thickening. Ovaries: Not well visualized, but no gross abnormalities noted. Vagina: Vaginal pessary ring noted. Peritoneal and Retroperitoneal Structures: No free fluid or abnormal fluid collections were identified within the abdomen or pelvis. No lymphadenopathy was noted. Bowel: Multiple colonic diverticulosis with no signs of diverticulitis noted. Large duodenal diverticulum related to the third part of the duodenum with an air-fluid level noted. Mild proximal jejunal loop dilation reaching 29 mm in cross-section with no obstructing mass depicted. Bones and Soft Tissues: Left T12, T11, and T10 posterior rib fractures with fragmentation at the T12 level noted. Moderate spondylosis of the lumbar spine with marginal osteophytosis and right-sided scoliosis noted. Pelvic bones and soft tissues are unremarkable. No fractures or abnormal masses were identified. Minimal left-sided pleural effusion noted. IMPRESSION: 1. Left T12, T11, and T10 posterior rib fractures with fragmentation at the T12 level noted. 2. Moderate spondylosis of the lumbar spine with marginal osteophytosis and right-sided scoliosis noted. 3. Mild hepatomegaly noted. 4. Colonic diverticulosis with no signs of diverticulitis. 5. Evidence of duodenal diverticulum related to the 3rd part of the duodenum. Electronically signed by Kwabena Severino 01-31-2025 7:[address] 01/31/25 17:09 EXAM: CT cervical spine wo con CLINICAL HISTORY: Trauma. TECHNIQUE: CT scan of the cervical spine was performed without the administration of intravenous contrast. Contiguous axial images were obtained from the skull base to the upper thoracic spine. Coronal and sagittal reformatted images were also reviewed. One of the following dose reduction techniques was utilized for this exam. Automated exposure control, adjustment of the mA and/or kV according to patient size, and use of iterative reconstruction. COMPARISON: No previous studies are available for comparison. FINDINGS: Vertebrae: Marked spondylosis of the cervical spine noted. The vertebral bodies are normal in height and alignment. No evidence of acute fracture or dislocation. The cortical and trabecular bone patterns are normal. No signs of lytic or sclerotic lesions. Normal configuration of the posterior elements. Intervertebral Discs: C3-4 mild posterolateral disc/osteophyte protrusion is seen abutting the ventral theca with mild left side exit neural foraminal encroachment. C4-5 mild posterolateral disc/osteophyte protrusion is seen abutting the ventral theca with mild left side exit neural foraminal encroachment. C5-6 posterior disc/osteophyte protrusion is seen abutting the ventral theca with mild to moderate bilateral exit neural foraminal encroachment. C6-7 posterior disc/osteophyte protrusion abutting the ventral theca with right side exit neural foraminal compromise. 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 Neural Foramina: The neural foramina are patent bilaterally at all levels. No evidence of foraminal narrowing or nerve root compression. Prevertebral Soft Tissues: The prevertebral soft tissues are normal in thickness without evidence of mass or abnormal fluid collection. Additional Findings: No other significant findings are noted in the visualized soft tissue structures or bony elements. IMPRESSION: 1. Marked spondylolysis of the cervical spine. 2. Multilevel degenerative disc protrusions noted. 3. 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 4. No acute fracture. Electronically signed by Kwabena Severino 01-31-2025 7:[address] 01/31/25 17:09 EXAM: CT chest diagnostic w con CLINICAL HISTORY: Trauma. TECHNIQUE: Contiguous 3.[address] images of the chest were acquired with administration of 93ml Opitray-320mg/ml intravenous contrast. Coronal and sagittal reconstructions were obtained. One of the following dose reduction techniques was utilized for this exam: Automated exposure control, adjustment of the mA and/or kV according to patient size, and use of iterative reconstruction COMPARISON: 01/31/2025 16:26:00 VP SOFTWARE ENGINEERING CXR. FINDINGS: Lungs: Lungs are clear with no evidence of consolidation, collapse, or focal lesions. No ground-glass opacities or interstitial changes. Mediastinum: No mediastinal mass or abnormal lymphadenopathy. Normal appearance of the thymus. Hilar Structures: Normal size and configuration, no enlargement. Heart and Great Vessels: Normal heart size and configuration. No pericardial effusion. Normal caliber and course of the thoracic aorta and other great vessels. No significant atherosclerosis or aneurysm. Normal enhancement of the great vessels post-contrast. Pulmonary Arteries: No evidence of pulmonary embolism. Normal size and course of the pulmonary arteries. Esophagus: Normal course and caliber. No masses or dilatation. Bones: No fractures or lytic/sclerotic lesions. Normal bone density and alignment. No evidence of rib fractures. Chest Wall: Left posterior ninth rib incomplete fracture Simple displaced fracture of the left posterior and the lateral 10th and 11th ribs. Left lateral 7th and 8th rib nondisplaced fracture. Comminuted fracture of the left posterior 11th rib near the transverse vertebral process . Left anterior 3rd to 5th ribs old healed fractures. Mild spondylosis of the scanned vertebrae. Upper Abdomen: Visualized portions of the liver, spleen, pancreas, adrenal glands, and kidneys are normal. No abnormalities noted in the visualized upper abdominal organs. Thyroid: Normal size and morphology. No nodules or masses. IMPRESSION: 1. Left posterior ninth rib incomplete fracture. 2. Simple displaced fracture of the left posterior and the lateral 10th and 11th ribs. 3. Left lateral 7th and 8th rib nondisplaced fracture. 4. Comminuted fracture of the left posterior 11th rib near the transverse vertebral process. 5. Left pleural mild thickening. 6. The CT confirms and details the CXR findings. Electronically signed by Kwabena Severino 01-31-2025 7:51 PM Chest X-Ray 01/31/25 17:09 EXAM: XR chest 1V portable CLINICAL HISTORY: Trauma TECHNIQUE: An X-ray image of the chest is obtained in AP projection. COMPARISON: No prior studies are available for comparison. FINDINGS: Pulmonary Parenchyma: Lungs are clear bilaterally. No evidence of consolidation, collapse, or focal opacities. No pulmonary nodules are identified. No evidence of pleural effusion or pleural thickening. Heart and Mediastinum: Heart size and shape are normal. Mild hilar vascular congestion noted No mediastinal widening or masses. No hilar or mediastinal lymphadenopathy. Bony Thorax: Minimally displaced fracture of the left 9th and 10th rib laterally. Intact left shoulder joint arthroplasty noted. Right shoulder degenerative changes noted. Soft Tissues: Soft tissues overlying the chest wall are unremarkable. IMPRESSION: Minimally displaced fracture of the left 9th and 10th rib laterally. DISCLAIMER:A subtle bone abnormality or fracture may not be readily apparent on x-rays, thus clinical correlation and further imaging including follow up CT, MRI, or follow up x-rays are advised as needed. Electronically signed by Kwabena Severino 01-31-2025 6:[address] 01/31/25 17:09 EXAM: CT head/brain wo con CLINICAL HISTORY: trauma. TECHNIQUE: Axial non-contrast CT scan of the brain was performed from the skull base to the high parietal region. One of the following dose reduction techniques were utilized for this exam: Automated exposure control, adjustment of the mA and/or kV according to patient size, use of iterative reconstruction. COMPARISON: None. FINDINGS: Brain Parenchyma: Age-appropriate cortical changes are evident by mildly dilated sulci and ventricles. Accentuated periventricular hypodensity with tiny ill-defined foci seen at the bilateral centrum semioval and watershed areas indicating deep white matter microvascular ischemia. Normal attenuation of the cerebral hemispheres, cerebellum, and brainstem. No evidence of acute infarct, hemorrhage, or mass effect. No abnormal areas of hypo- or hyperattenuation. No evidence of hydrocephalus or ventricular enlargement. No evidence of subarachnoid hemorrhage or extra-axial fluid collections. Cerebellum and Brainstem: No masses, lesions, or areas of abnormal density. Orbits: Normal appearance of the globes, optic nerves, and extraocular muscles. No evidence of orbital masses or abnormal density. Sinuses: Clear paranasal sinuses. No evidence of sinusitis or mucosal thickening. Mastoid Air Cells: Clear mastoid air cells. No evidence of mastoiditis. Skull: Hyperostosis frontalis interna IMPRESSION: 1. No CT signs of intracranial acute traumatic changes. 2. Mild age-appropriate cortical changes with deep white matter microvascular ischemia. Electronically signed by Kwabena Severino 01-31-2025 7:36 PM Diagnostic Findings EKG as per my interpretation :Rate 90, NSR, LAD, LAFB, LVH, no ischemia
[2025-01-31] MEDS: REMOVE LIDODERM PATCH SCH (21:07)
[2025-01-31] MEDS ORDERED: PROMETHAZINE 6.25 MG/50.25 ML BAG IV PRN (21:22)
[2025-01-31] MEDS ORDERED: ACETAMINOPHEN 325 MG TAB PO PRN (21:22)
[2025-01-31 21:26] LABS: Magnesium 1.8 mg/dl (1.7-2.4)
[2025-01-31] MEDS: SODIUM CHLORIDE 0.9% 1,000 ML IV STA (21:45)
[2025-01-31 21:57] LABS: Base Excess VBG -0.2 mEq/L; HCO3 VBG 26 mmol/L; Oxygen Saturation VBG 93.9 %; PCO2 VBG 47 mmHg (38-50); PO2 VBG 68 mmHg; pH VBG 7.35 (7.36-7.41)
[2025-01-31] MEDS: MoRPHine SULFATE 2 MG/ML CARP IV STA (22:28)
--- NOTE | 2025-01-31 22:34 | Communication Note ---
Date of Service: January 31, 2025 This note is for communication purposes. Notified by ER physician (Dr. De Luna) @2029, on patient case with possible admission to the ICU in regards to her multiple contingent rib fractures and comminuted 11th rib fracture. Patient declined transfer to trauma center. Patient was seen and pain is better controlled. Upon discussion with the adm itting service (Dr. Rico) @ 2219, He had already discussed with surgeon mobile application engineer (Dr. Peñaloza) and it was communicated back to me that they are OK with admitting patient to Med/Tele. and no ICU consult has been placed. 2256: Updated by admitting service, patient will come to ICU for admission and ICU consultation will be placed see consult for full plan. Aris VELAZQUEZ (ACNP-)
[2025-01-31] MEDS: MAGNESIUM SULFATE / D5W 1 GM/100 ML BAG IV STA (22:43)
[2025-01-31] MEDS: KETOROLAC TROMETHAMINE 15 MG/ML VIAL IV STA (22:43)
--- NOTE | 2025-02-01 00:03 | Critical Care Consultation ---
Date of Consultation January 31, 2025 Assessment & Plan (1) Multiple fractures of ribs: (2) Acute pain: Plan Reason Critically Ill: 79 YOF with multiple contingent rib fractures and comminuted 11th rib fracture. Admitted to ICU for monitoring of pulmonary status and assistance with pain control. Neuro - Acute pain from rib fractures, contiguous rib fracture 7th-11 [facility] ICU- Negative - Patient declined transfer to trauma center- surgical consultation placed by admitting service - Multimodal pain control- agree with current Tylenol, tiered oxycodone, morphine and lidocaine patch. - will add rescue Narcan - If morphine is not effective consider change to hydromorphone - Consider adding valium of spasms occur - Consider acute/chronic pain evaluation for possible intercostal block - OOB to chair TID or more to allow lung expansion Cardiac - No acute needs, hx of HTN - Continue home Lisinopril Respiratory - Risk for atelectasis/pulmonary contusion/pneumonia in light of rib fractures - ICS x10 every hour while awake - Provide splinting device for left side while performing ICS, moving, Coughing/deep breathing - Oxygen as needed to maintain spo2 >95% - Follow with am chest x-ray GI - No acute needs - diet regular as tolerated - No evidence of splenic injury or bleeding noted on CT abd/pelvis or hemodynamics RENAL/LYTES - No acute needs - ICU electrolyte protocol - No acute needs ENDO - No acute needs HEME - No acute needs - Leukocytosis- mild likely reactionary from trauma - Follow hemoglobin levels and hemodynamics- repeat CT abd/pelvis for any change in light of comminuted 11th rib frx - Transfuse for active bleeding, HGB <7.0 or symptomatic anemia ID - No concern at this time for infectious etiology LINES/IV ACCESS - PIV Continue use of these lines DVT PROPHYLAXIS - SCDS, ambulation- hold on chemoprophy until bleeding is ensured following fall DISPO- ICU until pain control is adequate to allow for adequate oxygenation and ventilation. I have personally spent 35 minutes of critical care time in the direct managem ent of this patient. This is a life/limb threatening event. This includes time spent evaluating patient, direct bedside care, chart review, placing orders, interpretation of diagnostic studies, discussion with consultants, patient, and family members, as well as other required patient management activities. This time is exclusive of all separately billable procedures, and teaching time and separate from and in addition to any other critical care service time. Thank you for allowing us to participate in the care of this patient. Please refer to my attending physician's documentation for any further recommendations. History of Present Illness Reason for Consultation: Fall with multiple rib fractures Requesting Physician: Nikunj Rico MD Attending Physician: Daniel Mart DO History of Present Illness 79 YOF who is not from this area, and is from [place] visiting her daughter. Patient reports tot he ER by EMS secondary to falling in bathroom and landing on toilet. Patient reports that she was in the bathroom with wooden floors and she was wearing sandals, where she then lost her footing and fell landing directly on her left side into the toilet and the wall. In the ER the patient had primary survey completed and secondary survey completed with imaging of C-spine, head, chest, abdomen and pelvis, as well as CXR completed. Patient also had routine labs performed. Imaging was interpreted as: LEFT lateral 7th and 8th nondisplaced rib fracture left posterior 9th rib incomplete fracture, simple displaced fracture of the left posterior and lateral 10th and 11th ribs, and comminuted fracture of the left posterior 11th rib near the transverse process. There was also no reported pneumo/hemothorax with this injury as well as no hemorrhage/spleen injury interpreted on ct abd/pelvis. Patient reportedly declined transfer to trauma facility despite risks disucssion noted by the ER attending note. Patient was seen in the Emergency Room while awaiting admission. She was given multimodal pain medications and currently feels her pain is better. She does note some left upper chest discomfort with palpation, but denies any other new pain that has occurred. Patient will be admitted to the ICU for continued multi-modal pain control, ICS and cough and deep breathing excercises. We will monitor her respiratory efforts with pain medication as well as oxygenation and ventilation efforts. CODE: FULL Allergies Allergy/AdvReac Type Severity Reaction Status Date / Time celecoxib [From Celebrex] Allergy Severe Rash Unverified 01/31/25 18:38 Home Medications Medication Instructions Recorded Confirmed Type citalopram 10 mg tablet 10 mg PO QAM 01/31/25 01/31/25 History estradiol 0.01% (0.1 mg/gram) 1 appful vaginal 2XWK 01/31/25 01/31/25 History vaginal cream ibuprofen 200 mg tablet (Advil) 200 mg PO Q6H PRN Pain 01/31/25 01/31/25 History lisinopril 5 mg tablet 5 mg PO QDL 01/31/25 01/31/25 History omeprazole 40 mg capsule,delayed 40 mg PO QAM 01/31/25 01/31/25 History release Patient History Medical History (Updated 02/01/25 @ 00:16 by MARCUS Granados) Anxiety and depression HTN (hypertension) Surgical History (Updated 02/01/25 @ 00:03 by MARCUS Granados) History of left shoulder replacement Social History Smoking Status: Former smoker Feels Safe at Home: Yes Review of Systems Review of Systems: REVIEW OF SYSTEMS: Constitutional: No fever, sweats or chills Eyes: No diplopia, no worsening or blurred vision ENT: normal hearing, no trouble swallowing Respiratory: No cough, sputum, dyspnea at rest or on exertion Cardiovascular: No chest pain, tightness or palpitations Abdomen: No pain, nausea, vomiting, diarrhea or constipation Musculoskeletal: (+) Flank pain, chronic right shoulder pain, No calf pain, swelling Neurologic: No weakness, numbness/tingling, or balance problems Psychiatric: (+) anxiety/depression Skin: No rash or itch Physical Exam Physical Exam: PHYSICAL EXAM: General: awake, alert, Head: Normocephalic, atraumatic Neuro: AAO x 3, PEERLA, speech clear and appropriate, strength intact bilaterally 5/5, sensation intact and equal all extremities and dermatomes, no pronator drift Chest: equal rise and fall of the chest, no accessory muscle use, no crepitus noted, ecchymosis to left flank Cardiac: Regular rate and rhythm, telemetry reviewed- sinus tachycardia, skin warm dry, cap refill <3 seconds, peripheral pulses +2 no JVD, no murmur, no edema GI: NABS x 4 quadrants, soft, nontender to palpation, no rebound, guarding or tenderness : Spontaneously voiding, no pain, or hematuria Extremities: Normal inspection, no peripheral edema or erythema, calfs nontender to palpation Psych: Normal mood and affect Results & Data Results & Data Vital Signs (Past 12 Hours) Vital Signs Temp Pulse Resp BP Pulse Ox O2 Del Method O2 Flow Rate 01/31/25 23:20 Nasal Cannula 2 01/31/25 23:00 83 18 138/86 97 Room Air 01/31/25 22:30 88 18 120/73 97 Room Air 01/31/25 22:00 94 H 24 146/91 H 97 Room Air 01/31/25 21:30 100 H 25 H 126/87 96 Room Air 01/31/25 21:07 102 H 01/31/25 21:00 104 H 25 H 123/71 96 Room Air 01/31/25 20:30 111 H 18 144/75 H 97 Room Air 01/31/25 20:00 92 H 19 98 Room Air 01/31/25 19:30 95 H 11 L 107/65 97 Nasal Cannula 2 01/31/25 19:00 103 H 18 136/90 98 Nasal Cannula 2 01/31/25 18:33 92 H 16 98 01/31/25 18:32 86 L Room Air 01/31/25 18:30 92 H 16 117/58 L 98 Nasal Cannula 2 01/31/25 18:06 154/76 H 01/31/25 17:23 91 H 01/31/25 17:12 92 H 21 94 Room Air 01/31/25 17:10 163/89 H 01/31/25 17:09 95 Room Air 01/31/25 17:02 36.8 C 92 H 24 163/89 H 95 Room Air Laboratory Results Abnormal lab results 01/31/25 01/31/25 01/31/25 Range/Units 17:12 17:16 21:47 WBC 11.21 H (4.8-10.8) K/ul RBC 4.16 L (4.20-5.40) M/uL Neut # (Auto) 7.53 H (1.40-6.50) K/uL [place] # (Auto) 0.77 H (0.11-0.59) K/uL VBG pH 7.35 L (7.36-7.41) Sodium 135 L (136-145) mmol/L POC Total CO2 22 L (24-31) mmol/L POC Anion Gap 13.0 L (16-25) mmol/L POC BUN 24 H (7-18) mg/dl BUN 24 H (6-23) mg/dl BUN/Creatinine Ratio 35.3 H (10-20) Glucose 123 H (70-99(Fasting)) mg/dl POC Glucose (other) 121 H (70-99) mg/dl POC Ioniz Calcium Maida 1.04 L (1.12-1.32) mmol/l Diagnostic Findings Abdomen/Pelvis CT 01/31/25 17:09 EXAM: CT abd pelvis IV con only CLINICAL HISTORY: Trauma TECHNIQUE: CT of the abdomen and pelvis was performed without and with 93 ml optiray 320 contrast, with the following protocol: axial images, and reconstructed coronal and sagittal images. One of the following dose reduction techniques was utilized for this exam: Automated exposure control, adjustment of the mA and/or kV according to patient size, and use of iterative reconstruction. COMPARISON: None. FINDINGS: Abdomen: Liver: Mildly enlarged in size (18 cm in right lobe span), no focal lesion noted. No focal lesions, cysts, or masses were identified. Hepatic vasculature and biliary ducts are unremarkable. Gallbladder and Biliary System: The gallbladder is normal in size and shape. No wall thickening, pericholecystic fluid, or gallstones were identified. The common bile duct is normal in caliber without dilation. Pancreas: Pancreatic head, body, and tail are visualized and appear normal in size and density. No pancreatic masses or calcifications were noted. The pancreatic duct is not dilated. Spleen: Normal in size, shape, and density. No splenic lesions or masses were identified. Appendix: The appendix is normal in size without periappendiceal fat stranding and without an appendicolith. No evidence of appendiceal abscess or perforation. Kidneys and Adrenal Glands: Both kidneys are normal in size, shape, and position. Cortical thickness is within normal limits. No renal calculi or hydronephrosis. Nodular thickening of the left adrenal gland was noted. A small umbilical hernia harboring omental fat was noted. Pelvis: Urinary Bladder: Normal in contour and wall thickness. No intraluminal lesions identified. Uterus: Normal in size and contour. No masses or abnormal thickening. Ovaries: Not well visualized, but no gross abnormalities noted. Vagina: Vaginal pessary ring noted. Peritoneal and Retroperitoneal Structures: No free fluid or abnormal fluid collections were identified within the abdomen or pelvis. No lymphadenopathy was noted. Bowel: Multiple colonic diverticulosis with no signs of diverticulitis noted. Large duodenal diverticulum related to the third part of the duodenum with an air-fluid level noted. Mild proximal jejunal loop dilation reaching 29 mm in cross-section with no obstructing mass depicted. Bones and Soft Tissues: Left T12, T11, and T10 posterior rib fractures with fragmentation at the T12 level noted. Moderate spondylosis of the lumbar spine with marginal osteophytosis and right-sided scoliosis noted. Pelvic bones and soft tissues are unremarkable. No fractures or abnormal masses were identified. Minimal left-sided pleural effusion noted. IMPRESSION: 1. Left T12, T11, and T10 posterior rib fractures with fragmentation at the T12 level noted. 2. Moderate spondylosis of the lumbar spine with marginal osteophytosis and right-sided scoliosis noted. 3. Mild hepatomegaly noted. 4. Colonic diverticulosis with no signs of diverticulitis. 5. Evidence of duodenal diverticulum related to the 3rd part of the duodenum. Electronically signed by Kwabena Severino 01-31-2025 7:[address] 01/31/25 17:09 EXAM: CT cervical spine wo con CLINICAL HISTORY: Trauma. TECHNIQUE: CT scan of the cervical spine was performed without the administration of intravenous contrast. Contiguous axial images were obtained from the skull base to the upper thoracic spine. Coronal and sagittal reformatted images were also reviewed. One of the following dose reduction techniques was utilized for this exam. Automated exposure control, adjustment of the mA and/or kV according to patient size, and use of iterative reconstruction. COMPARISON: No previous studies are available for comparison. FINDINGS: Vertebrae: Marked spondylosis of the cervical spine noted. The vertebral bodies are normal in height and alignment. No evidence of acute fracture or dislocation. The cortical and trabecular bone patterns are normal. No signs of lytic or sclerotic lesions. Normal configuration of the posterior elements. Intervertebral Discs: C3-4 mild posterolateral disc/osteophyte protrusion is seen abutting the ventral theca with mild left side exit neural foraminal encroachment. C4-5 mild posterolateral disc/osteophyte protrusion is seen abutting the ventral theca with mild left side exit neural foraminal encroachment. C5-6 posterior disc/osteophyte protrusion is seen abutting the ventral theca with mild to moderate bilateral exit neural foraminal encroachment. C6-7 posterior disc/osteophyte protrusion abutting the ventral theca with right side exit neural foraminal compromise. 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 Neural Foramina: The neural foramina are patent bilaterally at all levels. No evidence of foraminal narrowing or nerve root compression. Prevertebral Soft Tissues: The prevertebral soft tissues are normal in thickness without evidence of mass or abnormal fluid collection. Additional Findings: No other significant findings are noted in the visualized soft tissue structures or bony elements. IMPRESSION: 1. Marked spondylolysis of the cervical spine. 2. Multilevel degenerative disc protrusions noted. 3. 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 4. No acute fracture. Electronically signed by Kwabena Severino 01-31-2025 7:[address] 01/31/25 17:09 EXAM: CT chest diagnostic w con CLINICAL HISTORY: Trauma. TECHNIQUE: Contiguous 3.[address] images of the chest were acquired with administration of 93ml Opitray-320mg/ml intravenous contrast. Coronal and sagittal reconstructions were obtained. 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 FINDINGS: Lungs: Lungs are clear with no evidence of consolidation, collapse, or focal lesions. No ground-glass opacities or interstitial changes. Mediastinum: No mediastinal mass or abnormal lymphadenopathy. Normal appearance of the thymus. Hilar Structures: Normal size and configuration, no enlargement. Heart and Great Vessels: Normal heart size and configuration. No pericardial effusion. Normal caliber and course of the thoracic aorta and other great vessels. No significant atherosclerosis or aneurysm. Normal enhancement of the great vessels post-contrast. Pulmonary Arteries: No evidence of pulmonary embolism. Normal size and course of the pulmonary arteries. Esophagus: Normal course and caliber. No masses or dilatation. Bones: No fractures or lytic/sclerotic lesions. Normal bone density and alignment. No evidence of rib fractures. Chest Wall: Left posterior ninth rib incomplete fracture Simple displaced fracture of the left posterior and the lateral 10th and 11th ribs. Left lateral 7th and 8th rib nondisplaced fracture. Comminuted fracture of the left posterior 11th rib near the transverse vertebral process . Left anterior 3rd to 5th ribs old healed fractures. Mild spondylosis of the scanned vertebrae. Upper Abdomen: Visualized portions of the liver, spleen, pancreas, adrenal glands, and kidneys are normal. No abnormalities noted in the visualized upper abdominal organs. Thyroid: Normal size and morphology. No nodules or masses. IMPRESSION: 1. Left posterior ninth rib incomplete fracture. 2. Simple displaced fracture of the left posterior and the lateral 10th and 11th ribs. 3. Left lateral 7th and 8th rib nondisplaced fracture. 4. Comminuted fracture of the left posterior 11th rib near the transverse vertebral process. 5. Left pleural mild thickening. 6. The CT confirms and details the CXR findings. Electronically signed by Kwabena Severino 01-31-2025 7:51 PM Chest X-Ray 01/31/25 17:09 EXAM: XR chest 1V portable CLINICAL HISTORY: Trauma TECHNIQUE: An X-ray image of the chest is obtained in AP projection. COMPARISON: No prior studies are available for comparison. FINDINGS: Pulmonary Parenchyma: Lungs are clear bilaterally. No evidence of consolidation, collapse, or focal opacities. No pulmonary nodules are identified. No evidence of pleural effusion or pleural thickening. Heart and Mediastinum: Heart size and shape are normal. Mild hilar vascular congestion noted No mediastinal widening or masses. No hilar or mediastinal lymphadenopathy. Bony Thorax: Minimally displaced fracture of the left 9th and 10th rib laterally. Intact left shoulder joint arthroplasty noted. Right shoulder degenerative changes noted. Soft Tissues: Soft tissues overlying the chest wall are unremarkable. IMPRESSION: Minimally displaced fracture of the left 9th and 10th rib laterally. DISCLAIMER:A subtle bone abnormality or fracture may not be readily apparent on x-rays, thus clinical correlation and further imaging including follow up CT, MRI, or follow up x-rays are advised as needed. Electronically signed by Kwabena Severino 01-31-2025 6:[address] 01/31/25 17:09 EXAM: CT head/brain wo con CLINICAL HISTORY: trauma. TECHNIQUE: Axial non-contrast CT scan of the brain was performed from the skull base to the high parietal region. One of the following dose reduction techniques were utilized for this exam: Automated exposure control, adjustment of the mA and/or kV according to patient size, use of iterative reconstruction. COMPARISON: None. FINDINGS: Brain Parenchyma: Age-appropriate cortical changes are evident by mildly dilated sulci and ventricles. Accentuated periventricular hypodensity with tiny ill-defined foci seen at the bilateral centrum semioval and watershed areas indicating deep white matter microvascular ischemia. Normal attenuation of the cerebral hemispheres, cerebellum, and brainstem. No evidence of acute infarct, hemorrhage, or mass effect. No abnormal areas of hypo- or hyperattenuation. No evidence of hydrocephalus or ventricular enlargement. No evidence of subarachnoid hemorrhage or extra-axial fluid collections. Cerebellum and Brainstem: No masses, lesions, or areas of abnormal density. Orbits: Normal appearance of the globes, optic nerves, and extraocular muscles. No evidence of orbital masses or abnormal density. Sinuses: Clear paranasal sinuses. No evidence of sinusitis or mucosal thickening. Mastoid Air Cells: Clear mastoid air cells. No evidence of mastoiditis. Skull: Hyperostosis frontalis interna IMPRESSION: 1. No CT signs of intracranial acute traumatic changes. 2. Mild age-appropriate cortical changes with deep white matter microvascular ischemia. Electronically signed by Kwabena Severino 01-31-2025 7:36 PM Medications Administered Home Medications citalopram 10 mg tablet 10 mg PO QAM 01/31/25 [History Confirmed 01/31/25] estradiol 0.01% (0.1 mg/gram) vaginal cream 1 appful vaginal 2XWK 01/31/25 [History Confirmed 01/31/25] ibuprofen 200 mg tablet (Advil) 200 mg PO Q6H PRN Pain 01/31/25 [History Confirmed 01/31/25] lisinopril 5 mg tablet 5 mg PO QDL 01/31/25 [History Confirmed 01/31/25] omeprazole 40 mg capsule,delayed release 40 mg PO QAM 01/31/25 [History Confirmed 01/31/25] Active Medications Acetaminophen (Acetaminophen 325 Mg Tab) 650 mg PO QID PRN PRN Reason: pain/fever Stop: 03/02/25 21:21 Citalopram Hydrobromide (Citalopram 20 Mg Tab) 10 mg PO QAM JANICE Stop: 03/03/25 08:59 Hydroxyzine HCl (Hydroxyzine Hcl 10 Mg Tab) 10 mg PO QID PRN PRN Reason: Anxiety Stop: 03/02/25 22:13 Sodium Chloride (Nss) 1,000 mls @ 75 mls/hr IV .[id number] STA Stop: 02/01/25 10:19 Last Admin: 01/31/25 21:45 Dose: 75 mls/hr Promethazine HCl (Phenergan) 6.25 mg in 50.25 mls @ 201 mls/hr IV Q6H PRN PRN Reason: Nausea And Vomiting Stop: 03/02/25 21:21 Magnesium Sulfate/Dextrose (Magnesium Sulfate / D5w) 1 gm in 100 mls @ 50 mls/hr IV ONE STA Stop: 02/01/25 00:15 Last Admin: 01/31/25 22:43 Dose: 50 mls/hr Lisinopril (Lisinopril 5 Mg Tab) 5 mg PO QDL JANICE Stop: 03/03/25 11:29 Miscellaneous (Remove Lidoderm Patch) 1 each N/A QAM JANICE Stop: 02/01/25 09:01 Miscellaneous (Icu Protocol For Hyperglycemia) 1 each N/A ACHS JANICE Stop: 02/03/25 07:29 Morphine Sulfate (Morphine Sulfate 2 Mg/Ml Carp) 2 mg IV Q3H PRN PRN Reason: Pain Stop: 02/14/25 21:21 Oxycodone HCl (Oxycodone Hcl Ir 5 Mg Tab (Immediate Release)) 5 - 10 mg PO QID PRN PRN Reason: Pain Stop: 02/14/25 21:21 Pantoprazole Sodium (Pantoprazole 40 Mg Tab) 40 mg PO QAM JANICE Stop: 03/03/25 08:59 ECG Additional Comments: Normal sinus rhythm Minimal voltage criteria for LVH, may be normal variant([place] product) Borderline ECG No previous ECGs available Coding Level of Care Code 01794 CRITICAL CARE 1ST 30-74M Diagnoses Multiple fractures of ribs S22.49XA Acute pain R52
[2025-02-01] MEDS ORDERED: NALOXONE HCL 0.4 MG/1 ML VIAL/CARP IV PRN (00:23)
[2025-02-01] MEDS: MoRPHine SULFATE 2 MG/ML CARP IV PRN (00:25)
--- NOTE | 2025-02-01 01:54 | XRay Report ---
Exam(s): XR CXR 1 VIEW EXAM: XR Chest, 1 View CLINICAL HISTORY: Reason for exam: new cp. TECHNIQUE: Frontal view of the chest. COMPARISON: Prior chest x-ray from January 31, 2025. FINDINGS: Lungs: Mild to moderate peribronchial thickening of the central bronchi. No consolidation. Pleural space: Unremarkable. No pneumothorax. Heart: Unremarkable. No cardiomegaly. Mediastinum: Unremarkable. Normal mediastinal contour. Bones/joints: Left shoulder arthroplasty.. No acute fracture. IMPRESSION: Bronchitis, which may be of infectious or inflammatory etiologies. No consolidation or pleural effusion. Electronically signed by: Kellen Montoya MD 02/01/25 01:52 AM
[2025-02-01] MEDS: ACETAMINOPHEN 1,000 MG/100 ML VIAL IV STA (03:35)
[2025-02-01] MEDS: MoRPHine SULFATE 4 MG/ML 1 ML CARP\\VIAL IV PRN (03:37)
[2025-02-01 05:25] LABS: Hematocrit (blood only) 35.0 % (37.0-47.0); Hemoglobin 11.9 g/dl (12.0-16.0); Immature Granulocytes # (auto) 0.04 K/uL (0.01-0.20); Immature Granulocytes % (auto) 0.5 %; Mean Corpuscular Hemoglobin 33.3 pg (25.0-34.0); Mean Corpuscular Volume 98.0 fL (80.0-100.0); Platelet Count 196 K/uL (130-400); RDW Standard Deviation 42.7 fL (36.4-46.3); Red Blood Count 3.57 M/uL (4.20-5.40); White Blood Count 7.91 K/ul (4.8-10.8)
[2025-02-01 05:41] LABS: Anion Gap 5.0 (3-11); Blood Urea Nitrogen 23.0 mg/dl (6-23); Calcium 8.3 mg/dl (8.6-10.3); Carbon Dioxide 27.0 mmol/L (21-32); Chloride 102.0 mmol/L (98-107); Creatinine Clr Calc Pharmacy 71.6 ml/min; Glucose 117.0 mg/dl (70-99(Fasting)); Magnesium 2.3 mg/dl (1.7-2.4); Potassium 4.4 mmol/L (3.5-5.1); Sodium 134.0 mmol/L (136-145)
[2025-02-01] MEDS: ICU ELECTROLYTE REPLACEMENT PROTOCOL SCH (05:56)
[2025-02-01 07:38] LABS: Hemoglobin A1C 5.2 % (4.5-5.6)
--- NOTE | 2025-02-01 08:01 | Critical Care Progress Note ---
Date of Service February 01, 2025 Assessment & Plan (1) Multiple fractures of ribs: (2) Acute pain: Plan Reason Critically Ill: 79 YOF with multiple contingent rib fractures and comminuted 11th rib fracture. Admitted to ICU for monitoring of pulmonary status and assistance with pain control. Neuro - Acute pain from rib fractures, contiguous rib fracture 7th-11th CAM ICU- Negative - Patient declined transfer to trauma center- surgical consultation placed by admitting service - Multimodal pain control- agree with current Tylenol, tiered oxycodone, morphine and lidocaine patch. - will add rescue Narcan - pain management evaluation for possible intercostal block - OOB to chair TID or more to allow lung expansion - Physical therapy consulted Cardiac - No acute needs, hx of HTN - Continue home Lisinopril Respiratory - Risk for atelectasis/pulmonary contusion/pneumonia in light of rib fractures - ICS x10 every hour while awake - Provide splinting device for left side while performing ICS, moving, Coughing/deep breathing - Oxygen as needed to maintain spo2 >95% - Follow chest x-ray tomorrow - No evidence of pulmonary contusion at this time GI - No acute needs - diet regular as tolerated - No evidence of splenic injury or bleeding noted on CT abd/pelvis or hemodynamics RENAL/LYTES - No acute needs - ICU electrolyte protocol - No acute needs ENDO - No acute needs HEME - No acute needs - Leukocytosis- mild likely reactionary from trauma - Follow hemoglobin levels and hemodynamics- repeat CT abd/pelvis for any change in light of comminuted 11th rib frx - Transfuse for active bleeding, HGB <7.0 or symptomatic anemia ID - No concern at this time for infectious etiology LINES/IV ACCESS - PIV Continue use of these lines DVT PROPHYLAXIS - SCDS, ambulation-starting Lovenox given limited mobility and recent trauma DISPO- ICU, anticipate probable downgrade out of ICU tomorrow. Discussed with daughter at bedside who works in healthcare field. Anticipate will likely need short-term rehab to maintain mobility and strength Admission and Anticipated Discharge Date Admission Date: January 31, 2025 Subjective Pain at baseline 5-6 out of 10, when taking deep breaths or coughs pain 9 out of 10. Physical Exam Physical Exam: General: Alert. nontoxic. Skin: Warm, dry, Head: Atraumatic Ears, nose, mouth and throat: airway patent, nasal cannula in place, saturating 92% Cardiovascular: Normal peripheral perfusion Respiratory: no respiratory distress, Gastrointestinal: Non distended Musculoskeletal: No deformity Results & Data Results & Data Vital Signs (Past 12 Hours) Vital Signs Temp Pulse Pulse Resp BP BP Pulse Ox 02/01/25 06:00 36.7 C 68 16 125/61 95 02/01/25 05:00 36.7 C 68 14 128/63 95 02/01/25 04:00 69 14 116/60 95 02/01/25 03:00 70 13 128/58 L 95 02/01/25 02:00 36.7 C 83 20 129/56 L 96 02/01/25 01:00 71 16 114/51 L 96 02/01/25 00:46 81 16 134/62 96 02/01/25 00:20 72 02/01/25 00:15 02/01/25 00:15 36.7 C 70 24 168/64 H 96 02/01/25 00:15 36.7 C 70 16 168/64 H 96 01/31/25 23:20 01/31/25 23:00 83 18 138/86 97 01/31/25 22:30 88 18 120/73 97 01/31/25 22:00 94 H 24 146/91 H 97 01/31/25 21:30 100 H 25 H 126/87 96 01/31/25 21:07 102 H 01/31/25 21:00 104 H 25 H 123/71 96 01/31/25 20:30 111 H 18 144/75 H 97 O2 Del Method O2 Flow Rate 02/01/25 06:00 Nasal Cannula 2 02/01/25 05:00 Nasal Cannula 2 02/01/25 04:00 Nasal Cannula 2 02/01/25 03:00 Room Air 02/01/25 02:00 Nasal Cannula 2 02/01/25 01:00 02/01/25 00:46 02/01/25 00:20 02/01/25 00:15 Nasal Cannula 2 02/01/25 00:15 Nasal Cannula 2 02/01/25 00:15 Nasal Cannula 2 01/31/25 23:20 Nasal Cannula 2 01/31/25 23:00 Room Air 01/31/25 22:30 Room Air 01/31/25 22:00 Room Air 01/31/25 21:30 Room Air 01/31/25 21:07 01/31/25 21:00 Room Air 01/31/25 20:30 Room Air Critical Care Results & Data Vital Signs (Past 12 Hours) Vital Signs Temp Pulse Pulse Resp BP BP Pulse Ox 02/01/25 11:27 37.2 C 02/01/25 11:10 91 02/01/25 10:00 79 22 96 02/01/25 09:00 02/01/25 08:00 76 02/01/25 08:00 73 22 95 02/01/25 08:00 134/63 02/01/25 08:00 36.6 C 02/01/25 07:00 67 16 95 02/01/25 07:00 146/56 H 02/01/25 06:00 36.7 C 68 16 125/61 95 02/01/25 05:00 36.7 C 68 14 128/63 95 02/01/25 04:00 69 14 116/60 95 02/01/25 03:00 70 13 128/58 L 95 02/01/25 02:00 36.7 C 83 20 129/56 L 96 02/01/25 01:00 71 16 114/51 L 96 O2 Del Method O2 Flow Rate 02/01/25 11:27 02/01/25 11:10 Nasal Cannula 1 02/01/25 10:00 02/01/25 09:00 Nasal Cannula 2 02/01/25 08:00 02/01/25 08:00 02/01/25 08:00 02/01/25 08:00 02/01/25 07:00 02/01/25 07:00 02/01/25 06:00 Nasal Cannula 2 02/01/25 05:00 Nasal Cannula 2 02/01/25 04:00 Nasal Cannula 2 02/01/25 03:00 Room Air 02/01/25 02:00 Nasal Cannula 2 02/01/25 01:00 Lab & Micro Results (Past 24 Hours) RBC 3.57 M/uL (4.20-5.40) L 02/01/25 WBC 7.91 K/ul (4.8-10.8) 02/01/25 Hgb 11.9 g/dl (12.0-16.0) L 02/01/25 Hct 35.0 % (37.0-47.0) L 02/01/25 MCV 98.0 fL (80.0-100.0) 02/01/25 MCH 33.3 pg (25.0-34.0) 02/01/25 MCHC 34.0 g/dL (32.0-36.0) 02/01/25 RDW Standard Deviation 42.7 fL (36.4-46.3) 02/01/25 RDW Coefficient of Variation 11.9 % (11.5-14.5) 02/01/25 Plt Count 196 K/uL (130-400) 02/01/25 MPV 10.1 fL (9.4-12.4) 02/01/25 Neutrophils (%) (Auto) 73.7 % 02/01/25 Lymphocytes (%) (Auto) 15.5 % 02/01/25 Monocytes # (Auto) 0.74 K/uL (0.11-0.59) H 02/01/25 Eosinophils # (Auto) 0.03 K/uL (0.00-0.50) 02/01/25 Immature Granulocyte % (Auto) 0.5 % 02/01/25 Neutrophils # (Auto) 5.83 K/uL (1.40-6.50) 02/01/25 Lymphocytes # (Auto) 1.23 K/uL (1.20-3.40) 02/01/25 Monocytes # (Auto) 0.74 K/uL (0.11-0.59) H 02/01/25 Eosinophils # (Auto) 0.03 K/uL (0.00-0.50) 02/01/25 Basophils # (Auto) 0.04 K/uL (0.00-0.20) 02/01/25 Immature Granulocyte # (Auto) 0.04 K/uL (0.01-0.20) 5 Na 134 mmol/L (136-145) L 02/01/25 K 4.4 mmol/L (3.5-5.1) 02/01/25 Cl 102 mmol/L (98-107) 02/01/25 CO2 27 mmol/L (21-32) 02/01/25 Anion Gap 5 (3-11) 02/01/25 BUN 23 mg/dl (6-23) 02/01/25 Creatinine 0.61 mg/dl (0.6-1.2) 02/01/25 BUN/Creatinine Ratio 37.7 (10-20) H 02/01/25 Glu 117 mg/dl (70-99(Fasting)) H 02/01/25 Ca 8.3 mg/dl (8.6-10.3) L 02/01/25 Phosphorus Level 5.0 mg/dl (2.5-4.9) H 02/01/25 Total Bilirubin 0.4 mg/dl (0.2-1.0) 01/31/25 AST 24 U/L (13-39) 01/31/25 ALT 14 U/L (7-52) 01/31/25 Alkaline Phosphatase 66 U/L (34-104) 01/31/25 TP 7.4 gm/dl (6.0-8.3) 01/31/25 Albumin 4.4 gm/dl (3.4-5.0) 01/31/25 Globulin 3.0 gm/dl (2.5-4.0) 01/31/25 Albumin/Globulin Ratio 1.5 (0.9-2) 01/31/25 Mg 2.3 mg/dl (1.7-2.4) 02/01/25 04:54 Calcium Level 8.3 mg/dl (8.6-10.3) L 02/01/25 04:54 Prothromb Time International Ratio 1.0 (0.9-1.1) 01/31/25 17:1 2 Venous Blood pH 7.35 (7.36-7.41) L 01/31/25 21:47 Venous Blood Partial Pressure CO2 47 mmHg (38-50) 01/31/25 21:4 7 Venous Blood Partial Pressure O2 68 mmHg 01/31/25 21:47 Venous Blood HCO3 26 mmol/L 01/31/25 21:47 Venous Blood Base Excess -0.2 mEq/L 01/31/25 21:47 Venous Blood Oxygen Saturation 93.9 % 01/31/25 21:47 Diagnostic Findings (Past 24 Hours) Abdomen/Pelvis CT 01/31/25 17:09 EXAM: CT abd pelvis IV con only CLINICAL HISTORY: Trauma TECHNIQUE: CT of the abdomen and pelvis was performed without and with 93 ml optiray 320 contrast, with the following protocol: axial images, and reconstructed coronal and sagittal images. One of the following dose reduction techniques was utilized for this exam: Automated exposure control, adjustment of the mA and/or kV according to patient size, and use of iterative reconstruction. COMPARISON: None. FINDINGS: Abdomen: Liver: Mildly enlarged in size (18 cm in right lobe span), no focal lesion noted. No focal lesions, cysts, or masses were identified. Hepatic vasculature and biliary ducts are unremarkable. Gallbladder and Biliary System: The gallbladder is normal in size and shape. No wall thickening, pericholecystic fluid, or gallstones were identified. The common bile duct is normal in caliber without dilation. Pancreas: Pancreatic head, body, and tail are visualized and appear normal in size and density. No pancreatic masses or calcifications were noted. The pancreatic duct is not dilated. Spleen: Normal in size, shape, and density. No splenic lesions or masses were identified. Appendix: The appendix is normal in size without periappendiceal fat stranding and without an appendicolith. No evidence of appendiceal abscess or perforation. Kidneys and Adrenal Glands: Both kidneys are normal in size, shape, and position. Cortical thickness is within normal limits. No renal calculi or hydronephrosis. Nodular thickening of the left adrenal gland was noted. A small umbilical hernia harboring omental fat was noted. Pelvis: Urinary Bladder: Normal in contour and wall thickness. No intraluminal lesions identified. Uterus: Normal in size and contour. No masses or abnormal thickening. Ovaries: Not well visualized, but no gross abnormalities noted. Vagina: Vaginal pessary ring noted. Peritoneal and Retroperitoneal Structures: No free fluid or abnormal fluid collections were identified within the abdomen or pelvis. No lymphadenopathy was noted. Bowel: Multiple colonic diverticulosis with no signs of diverticulitis noted. Large duodenal diverticulum related to the third part of the duodenum with an air-fluid level noted. Mild proximal jejunal loop dilation reaching 29 mm in cross-section with no obstructing mass depicted. Bones and Soft Tissues: Left T12, T11, and T10 posterior rib fractures with fragmentation at the T12 level noted. Moderate spondylosis of the lumbar spine with marginal osteophytosis and right-sided scoliosis noted. Pelvic bones and soft tissues are unremarkable. No fractures or abnormal masses were identified. Minimal left-sided pleural effusion noted. IMPRESSION: 1. Left T12, T11, and T10 posterior rib fractures with fragmentation at the T12 level noted. 2. Moderate spondylosis of the lumbar spine with marginal osteophytosis and right-sided scoliosis noted. 3. Mild hepatomegaly noted. 4. Colonic diverticulosis with no signs of diverticulitis. 5. Evidence of duodenal diverticulum related to the 3rd part of the duodenum. Electronically signed by Kwabena Severino 01-31-2025 7:[address] 01/31/25 17:09 EXAM: CT cervical spine wo con CLINICAL HISTORY: Trauma. TECHNIQUE: CT scan of the cervical spine was performed without the administration of intravenous contrast. Contiguous axial images were obtained from the skull base to the upper thoracic spine. Coronal and sagittal reformatted images were also reviewed. One of the following dose reduction techniques was utilized for this exam. Automated exposure control, adjustment of the mA and/or kV according to patient size, and use of iterative reconstruction. COMPARISON: No previous studies are available for comparison. FINDINGS: Vertebrae: Marked spondylosis of the cervical spine noted. The vertebral bodies are normal in height and alignment. No evidence of acute fracture or dislocation. The cortical and trabecular bone patterns are normal. No signs of lytic or sclerotic lesions. Normal configuration of the posterior elements. Intervertebral Discs: C3-4 mild posterolateral disc/osteophyte protrusion is seen abutting the ventral theca with mild left side exit neural foraminal encroachment. C4-5 mild posterolateral disc/osteophyte protrusion is seen abutting the ventral theca with mild left side exit neural foraminal encroachment. C5-6 posterior disc/osteophyte protrusion is seen abutting the ventral theca with mild to moderate bilateral exit neural foraminal encroachment. C6-7 posterior disc/osteophyte protrusion abutting the ventral theca with right side exit neural foraminal compromise. 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 Neural Foramina: The neural foramina are patent bilaterally at all levels. No evidence of foraminal narrowing or nerve root compression. Prevertebral Soft Tissues: The prevertebral soft tissues are normal in thickness without evidence of mass or abnormal fluid collection. Additional Findings: No other significant findings are noted in the visualized soft tissue structures or bony elements. IMPRESSION: 1. Marked spondylolysis of the cervical spine. 2. Multilevel degenerative disc protrusions noted. 3. 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 4. No acute fracture. Electronically signed by Kwabena Severino 01-31-2025 7:[address] 01/31/25 17:09 EXAM: CT chest diagnostic w con CLINICAL HISTORY: Trauma. TECHNIQUE: Contiguous 3.[address] images of the chest were acquired with administration of 93ml Opitray-320mg/ml intravenous contrast. Coronal and sagittal reconstructions were obtained. One of the following dose reduction techniques was utilized for this exam: Automated exposure control, adjustment of the mA and/or kV according to patient size, and use of iterative reconstruction COMPARISON: 01/31/2025 16:26:00 REHABILITATION THERAPIST CXR. FINDINGS: Lungs: Lungs are clear with no evidence of consolidation, collapse, or focal lesions. No ground-glass opacities or interstitial changes. Mediastinum: No mediastinal mass or abnormal lymphadenopathy. Normal appearance of the thymus. Hilar Structures: Normal size and configuration, no enlargement. Heart and Great Vessels: Normal heart size and configuration. No pericardial effusion. Normal caliber and course of the thoracic aorta and other great vessels. No significant atherosclerosis or aneurysm. Normal enhancement of the great vessels post-contrast. Pulmonary Arteries: No evidence of pulmonary embolism. Normal size and course of the pulmonary arteries. Esophagus: Normal course and caliber. No masses or dilatation. Bones: No fractures or lytic/sclerotic lesions. Normal bone density and alignment. No evidence of rib fractures. Chest Wall: Left posterior ninth rib incomplete fracture Simple displaced fracture of the left posterior and the lateral 10th and 11th ribs. Left lateral 7th and 8th rib nondisplaced fracture. Comminuted fracture of the left posterior 11th rib near the transverse vertebral process . Left anterior 3rd to 5th ribs old healed fractures. Mild spondylosis of the scanned vertebrae. Upper Abdomen: Visualized portions of the liver, spleen, pancreas, adrenal glands, and kidneys are normal. No abnormalities noted in the visualized upper abdominal organs. Thyroid: Normal size and morphology. No nodules or masses. IMPRESSION: 1. Left posterior ninth rib incomplete fracture. 2. Simple displaced fracture of the left posterior and the lateral 10th and 11th ribs. 3. Left lateral 7th and 8th rib nondisplaced fracture. 4. Comminuted fracture of the left posterior 11th rib near the transverse vertebral process. 5. Left pleural mild thickening. 6. The CT confirms and details the CXR findings. Electronically signed by Kwabena Severino 01-31-2025 7:51 PM Chest X-Ray 01/31/25 17:09 EXAM: XR chest 1V portable CLINICAL HISTORY: Trauma TECHNIQUE: An X-ray image of the chest is obtained in AP projection. COMPARISON: No prior studies are available for comparison. FINDINGS: Pulmonary Parenchyma: Lungs are clear bilaterally. No evidence of consolidation, collapse, or focal opacities. No pulmonary nodules are identified. No evidence of pleural effusion or pleural thickening. Heart and Mediastinum: Heart size and shape are normal. Mild hilar vascular congestion noted No mediastinal widening or masses. No hilar or mediastinal lymphadenopathy. Bony Thorax: Minimally displaced fracture of the left 9th and 10th rib laterally. Intact left shoulder joint arthroplasty noted. Right shoulder degenerative changes noted. Soft Tissues: Soft tissues overlying the chest wall are unremarkable. IMPRESSION: Minimally displaced fracture of the left 9th and 10th rib laterally. DISCLAIMER:A subtle bone abnormality or fracture may not be readily apparent on x-rays, thus clinical correlation and further imaging including follow up CT, MRI, or follow up x-rays are advised as needed. Electronically signed by Kwabena Severino 01-31-2025 6:[address] 01/31/25 17:09 EXAM: CT head/brain wo con CLINICAL HISTORY: trauma. TECHNIQUE: Axial non-contrast CT scan of the brain was performed from the skull base to the high parietal region. One of the following dose reduction techniques were utilized for this exam: Automated exposure control, adjustment of the mA and/or kV according to patient size, use of iterative reconstruction. COMPARISON: None. FINDINGS: Brain Parenchyma: Age-appropriate cortical changes are evident by mildly dilated sulci and ventricles. Accentuated periventricular hypodensity with tiny ill-defined foci seen at the bilateral centrum semioval and watershed areas indicating deep white matter microvascular ischemia. Normal attenuation of the cerebral hemispheres, cerebellum, and brainstem. No evidence of acute infarct, hemorrhage, or mass effect. No abnormal areas of hypo- or hyperattenuation. No evidence of hydrocephalus or ventricular enlargement. No evidence of subarachnoid hemorrhage or extra-axial fluid collections. Cerebellum and Brainstem: No masses, lesions, or areas of abnormal density. Orbits: Normal appearance of the globes, optic nerves, and extraocular muscles. No evidence of orbital masses or abnormal density. Sinuses: Clear paranasal sinuses. No evidence of sinusitis or mucosal thickening. Mastoid Air Cells: Clear mastoid air cells. No evidence of mastoiditis. Skull: Hyperostosis frontalis interna IMPRESSION: 1. No CT signs of intracranial acute traumatic changes. 2. Mild age-appropriate cortical changes with deep white matter microvascular ischemia. Electronically signed by Kwabena Severino 01-31-2025 7:36 PM Chest X-Ray 01/31/25 22:12 Exam(s): XR CXR 1 VIEW EXAM: XR Chest, 1 View CLINICAL HISTORY: Reason for exam: new cp. TECHNIQUE: Frontal view of the chest. COMPARISON: Prior chest x-ray from January 31, 2025. FINDINGS: Lungs: Mild to moderate peribronchial thickening of the central bronchi. No consolidation. Pleural space: Unremarkable. No pneumothorax. Heart: Unremarkable. No cardiomegaly. Mediastinum: Unremarkable. Normal mediastinal contour. Bones/joints: Left shoulder arthroplasty.. No acute fracture. IMPRESSION: Bronchitis, which may be of infectious or inflammatory etiologies. No consolidation or pleural effusion. Electronically signed by: Kellen Montoya MD 02/01/25 01:52 AM Chest X-Ray 02/01/25 05:00 EXAM: XR chest 1V portable CLINICAL HISTORY: eval for opacities/effusions/pneumothoracies. TECHNIQUE: An X-ray image of the chest is obtained in AP projection. COMPARISON: 01/31/2025. FINDINGS: Pulmonary Parenchyma: Lungs are clear bilaterally. No evidence of consolidation, collapse, or focal opacities. No pulmonary nodules are identified. No evidence of pleural effusion or pleural thickening. Heart and Mediastinum: Heart size and shape are normal. No mediastinal widening or masses. No hilar or mediastinal lymphadenopathy. Bony Thorax: Stable minimally displaced fractures of left 9th and 10th ribs. Other rib fractures detected in the recent CT chest can`t be characterized on X-ray basis. Normal left shoulder joint arthropathy is seen. No loosening seen. Soft Tissues: Soft tissues overlying the chest wall are unremarkable. IMPRESSION: 1. No interval changes. 2. No acute cardiopulmonary abnormality. No radiographic evidence of airpsace opacities, pneumothorax or pleural effusion. 3. Stable minimally displaced fractures of left 9th and 10th ribs. Electronically signed by Kwabena Severino 02-01-2025 09:48 AM I & O Totals 24 Hours 01/31/25 02/01/25 02/02/25 06:59 06:59 06:59 Intake Total 350 / 350 1000 / 1000 Output Total 600 / 600 250 / 250 Balance -250 / -250 750 / 750 Cumulative 01/31/25 16:53 thru 02/01/25 11:13 Intake Total 1350 Output Total 850 Balance 500 RT Ventilator Mngmt (Last Documented) Ventilator Ordered Settings Respiratory Rate 22 02/01/25 10:00 Ventilator - PT Measurements Respiratory Rate 22 Coding Level of Care Code 34777 SUB INP/OBS CARE 3/50MIN Diagnoses Multiple fractures of ribs S22.49XA Acute pain R52
--- NOTE | 2025-02-01 08:24 | Surgery Consultation ---
Date of Consultation February 01, 2025 Assessment & Plan (1) Multiple fractures of ribs: Patient is a 79-year-old female who presented to the emergency department after sustaining a ground-level fall last evening. Patient underwent trauma workup and penn scanning revealed multiple left-sided rib fractures (7-12) without any pneumothorax/hemothorax. Originally, the patient was offered transfer to a tertiary trauma center, however patient declined at that time. The patient was admitted to the intensive care unit for close respiratory monitoring and pain control. The patient was seen and evaluated this morning at bedside, all imaging and labs reviewed. Repeat AM CXR pending. Patient with TTP over entirety of left lateral chest wall, currently on 2L NC with good oxygen saturations, and patient able to rack puller 1,000 on IS at bedside. She does have some mild TTP over the left clavicle however no signs of facture on imaging. Patient's case was discussed with Dr. Peñaloza at length. From a surgical perspective recommended following: -Given patient's age, and more than 3 consecutive rib fractures, recommend at least 24 hours of close respiratory monitoring in the intensive care unit. If patient does well could potentially transfer to [facility] floor tomorrow. - Recommend multimodal pain regimen with [id number] extra strength Tylenol, ibuprofen, oxycodone, and would recommend adding a low-dose muscle relaxer, and Lidoderm patch to left chest wall. - Repeat CXR pending for this morning, recommend obtaining at least one more tomorrow morning as well OR if any clinical changes arise - Explained to the patient in detail the importance of aggressive pulmonary toileting to decrease risk of potential pneumonia. Incentive spirometry 10 times an hour while awake, OOB, and ambulation as much as possible. -Continue medical management per primary team, surgery will follow. Supervising Physician Co-Signing Physician Notes Patient seen and examined, labs and imaging reviewed, agree with above. Patient's status post fall from ground yesterday, no loss of consciousness, fell on her left side on the toilet. Diagnosed with multiple rib fractures and no evidence of pneumothorax or hemothorax. Did have a small amount of subcutaneous emphysema. Admitted to ICU for pain control and close monitoring. She does states she has some pain with deep inspiration, but is able to do I-S and the pain is fairly well-controlled with current management. On exam she is afebrile with stable vitals. Satting 96% on 2 L nasal cannula. Tender to palpation left posterior chest with no palpable crepitus. CT imaging and chest x-rays personally reviewed and agree with the assessment of multiple rib fractures with no evidence of pneumothorax. There is some small amount of subcutaneous emphysema. Today's chest x-ray shows no evidence of pneumothorax or significant pulmonary contusion. Continue with current management. She needs adequate pain control to prevent splinting and prevent pneumonia. She should be up and out of bed and ambulating. Continue I-S. Continue with lidocaine patch, recommend scheduled acetaminophen and NSAIDs, oral and IV narcotic medication for breakthrough. If pain is not well-controlled, may need to consult pain management. Surgery will continue to follow, repeat chest x-ray in the morning, call with questions or concerns. History of Present Illness Reason for Consultation: Multiple left-sided rib fractures History of Present Illness Patient is a 79-year-old female who presented to the emergency department last evening after a ground-level fall. The patient states that she was in the bathroom, wearing rubber sandals, when she believes her shoes got caught causing her to lose her footing. The patient states that she fell against the toilet and struck the left side of her chest. The patient denies head strike or loss of consciousness at the time of the fall. The patient does not take any anticoagulation medication. However, the patient states that due to the severe pain to her left chest/flank she was unable to get herself up. Family was able to call 911 and patient presented to the emergency department for further evaluation. Upon workup the patient was found to have multiple left-sided rib fractures (7-12) without evidence of pneumothorax and was admitted to the intensive care unit for respiratory monitoring and pain control. The patient was seen and evaluated earlier this morning at bedside. She is resting comfortably in bed, vital signs stable, and is nontoxic-appearing. The patient is accompanied by her daughter who is at bedside. Patient states other than left-sided chest pain that she does feel lightheaded, however believes it is from lying flat most of the evening. She otherwise denies any neck pain, change in vision, abdominal pain, pelvic pain, or new onset of numbness and tingling to her upper or lower extremities. Allergies Allergy/AdvReac Type Severity Reaction Status Date / Time celecoxib [From Celebrex] Allergy Severe Rash Unverified 01/31/25 18:38 Home Medications Medication Instructions Recorded Confirmed Type citalopram 10 mg tablet 10 mg PO QAM 01/31/25 01/31/25 History estradiol 0.01% (0.1 mg/gram) 1 appful vaginal 2XWK 01/31/25 01/31/25 History vaginal cream ibuprofen 200 mg tablet (Advil) 200 mg PO Q6H PRN Pain 01/31/25 01/31/25 History lisinopril 5 mg tablet 5 mg PO QDL 01/31/25 01/31/25 History omeprazole 40 mg capsule,delayed 40 mg PO QAM 01/31/25 01/31/25 History release Patient History Medical History (Updated 02/01/25 @ 05:52 by Nikunj Casillas MD) Anxiety and depression HTN (hypertension) Surgical History (Updated 02/01/25 @ 00:03 by MARCUS Granados) History of left shoulder replacement Social History Smoking Status: Never smoker Hx Alcohol Use: Yes Alcohol type: wine Hx Substance Use: No Preferred Language: Turkish Communication Ability: Effective Systems Integration Manager Required: No Beliefs That Will Affect Care: None Current Living Situation: Alone Other Information That Helps Us Care for You: No Feels Safe at Home: Yes Safety Concerns: Feels Safe At This Time Assistive Devices: None Review of Systems Constitutional: no fever and no chills Eyes: not seeing flashes and no worsening vision Ear, Nose, Mouth, Throat: + dizziness; no ear trauma Respiratory: as per Subjective / HPI; no cough and no wheezing Cardiovascular: no palpitations and no syncope Gastrointestinal: no abdominal pain, no nausea and no vomiting Genitourinary: no urinary incontinence and no hematuria Musculoskeletal: no back pain and no neck pain Neurologic: no tingling, no numbness and no paresthesia Physical Exam Constitutional: WD/WN, vitals as above ENMT: external ear and nose normal, oropharynx normal Neck: trachea midline, no thyromegaly Respiratory: normal respiratory effort; no respiratory distress, no labored breathing and no stridor Auscultation: lungs clear to auscultation bilaterally; no rhonchi and no wheezes Cardiovascular: RRR, no murmur, no edema Chest (Breasts): Additional Comments: +TTP over left lateral chest wall, no ov erlying crepitus appreciated. Small amount of overlying ecchymosis present. Gastrointestinal (Abdomen): normal bowel sounds, soft, nontender, no hepatosplenomegaly Musculoskeletal: no cyanosis or clubbing, extremities motor strength 5/5 Skin: no rashes, warm and dry Results & Data Vital Signs (Past 12 Hours) Vital Signs Temp Pulse Pulse Resp BP BP Pulse Ox 02/01/25 06:00 36.7 C 68 16 125/61 95 02/01/25 05:00 36.7 C 68 14 128/63 95 02/01/25 04:00 69 14 116/60 95 02/01/25 03:00 70 13 128/58 L 95 02/01/25 02:00 36.7 C 83 20 129/56 L 96 02/01/25 01:00 71 16 114/51 L 96 02/01/25 00:46 81 16 134/62 96 02/01/25 00:20 72 02/01/25 00:15 02/01/25 00:15 36.7 C 70 24 168/64 H 96 02/01/25 00:15 36.7 C 70 16 168/64 H 96 01/31/25 23:20 01/31/25 23:00 83 18 138/86 97 01/31/25 22:30 88 18 120/73 97 01/31/25 22:00 94 H 24 146/91 H 97 01/31/25 21:30 100 H 25 H 126/87 96 01/31/25 21:07 102 H 01/31/25 21:00 104 H 25 H 123/71 96 01/31/25 20:30 111 H 18 144/75 H 97 O2 Del Method O2 Flow Rate 02/01/25 06:00 Nasal Cannula 2 02/01/25 05:00 Nasal Cannula 2 02/01/25 04:00 Nasal Cannula 2 02/01/25 03:00 Room Air 02/01/25 02:00 Nasal Cannula 2 02/01/25 01:00 02/01/25 00:46 02/01/25 00:20 02/01/25 00:15 Nasal Cannula 2 02/01/25 00:15 Nasal Cannula 2 02/01/25 00:15 Nasal Cannula 2 01/31/25 23:20 Nasal Cannula 2 01/31/25 23:00 Room Air 01/31/25 22:30 Room Air 01/31/25 22:00 Room Air 01/31/25 21:30 Room Air 01/31/25 21:07 01/31/25 21:00 Room Air 01/31/25 20:30 Room Air Diagnostic Findings CT Head: EXAM: CT head/brain wo con CLINICAL HISTORY: trauma. TECHNIQUE: Axial non-contrast CT scan of the brain was performed from the skull base to the high parietal region. One of the following dose reduction techniques were utilized for this exam: Automated exposure control, adjustment of the mA and/or kV according to patient size, use of iterative reconstruction. COMPARISON: None. FINDINGS: Brain Parenchyma: Age-appropriate cortical changes are evident by mildly dilated sulci and ventricles. Accentuated periventricular hypodensity with tiny ill-defined foci seen at the bilateral centrum semioval and watershed areas indicating deep white matter microvascular ischemia. Normal attenuation of the cerebral hemispheres, cerebellum, and brainstem. No evidence of acute infarct, hemorrhage, or mass effect. No abnormal areas of hypo- or hyperattenuation. No evidence of hydrocephalus or ventricular enlargement. No evidence of subarachnoid hemorrhage or extra-axial fluid collections. Cerebellum and Brainstem: No masses, lesions, or areas of abnormal density. Orbits: Normal appearance of the globes, optic nerves, and extraocular muscles. No evidence of orbital masses or abnormal density. Sinuses: Clear paranasal sinuses. No evidence of sinusitis or mucosal thickening. Mastoid Air Cells: Clear mastoid air cells. No evidence of mastoiditis. Skull: Hyperostosis frontalis interna IMPRESSION: 1. No CT signs of intracranial acute traumatic changes. 2. Mild age-appropriate cortical changes with deep white matter microvascular ischemia. CT C-Spine: EXAM: CT cervical spine wo con CLINICAL HISTORY: Trauma. TECHNIQUE: CT scan of the cervical spine was performed without the administration of intravenous contrast. Contiguous axial images were obtained from the skull base to the upper thoracic spine. Coronal and sagittal reformatted images were also reviewed. One of the following dose reduction techniques was utilized for this exam. Automated exposure control, adjustment of the mA and/or kV according to patient size, and use of iterative reconstruction. COMPARISON: No previous studies are available for comparison. FINDINGS: Vertebrae: Marked spondylosis of the cervical spine noted. The vertebral bodies are normal in height and alignment. No evidence of acute fracture or dislocation. The cortical and trabecular bone patterns are normal. No signs of lytic or sclerotic lesions. Normal configuration of the posterior elements. Intervertebral Discs: C3-4 mild posterolateral disc/osteophyte protrusion is seen abutting the ventral theca with mild left side exit neural foraminal encroachment. C4-5 mild posterolateral disc/osteophyte protrusion is seen abutting the ventral theca with mild left side exit neural foraminal encroachment. C5-6 posterior disc/osteophyte protrusion is seen abutting the ventral theca with mild to moderate bilateral exit neural foraminal encroachment. C6-7 posterior disc/osteophyte protrusion abutting the ventral theca with right side exit neural foraminal compromise. 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 Neural Foramina: The neural foramina are patent bilaterally at all levels. No evidence of foraminal narrowing or nerve root compression. Prevertebral Soft Tissues: The prevertebral soft tissues are normal in thickness without evidence of mass or abnormal fluid collection. Additional Findings: No other significant findings are noted in the visualized soft tissue structures or bony elements. IMPRESSION: 1. Marked spondylolysis of the cervical spine. 2. Multilevel degenerative disc protrusions noted. 3. 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 4. No acute fracture. CT Chest: EXAM: CT chest diagnostic w con CLINICAL HISTORY: Trauma. TECHNIQUE: Contiguous 3.[address] images of the chest were acquired with administration of 93ml Opitray-320mg/ml intravenous contrast. Coronal and sagittal reconstructions were obtained. One of the following dose reduction techniques was utilized for this exam: Automated exposure control, adjustment of the mA and/or kV according to patient size, and use of iterative reconstruction COMPARISON: 01/31/2025 16:26:00 POLE CLIMBER CXR. FINDINGS: Lungs: Lungs are clear with no evidence of consolidation, collapse, or focal lesions. No ground-glass opacities or interstitial changes. Mediastinum: No mediastinal mass or abnormal lymphadenopathy. Normal appearance of the thymus. Hilar Structures: Normal size and configuration, no enlargement. Heart and Great Vessels: Normal heart size and configuration. No pericardial effusion. Normal caliber and course of the thoracic aorta and other great vessels. No significant atherosclerosis or aneurysm. Normal enhancement of the great vessels post-contrast. Pulmonary Arteries: No evidence of pulmonary embolism. Normal size and course of the pulmonary arteries. Esophagus: Normal course and caliber. No masses or dilatation. Bones: No fractures or lytic/sclerotic lesions. Normal bone density and alignment. No evidence of rib fractures. Chest Wall: Left posterior ninth rib incomplete fracture Simple displaced fracture of the left posterior and the lateral 10th and 11th ribs. Left lateral 7th and 8th rib nondisplaced fracture. Comminuted fracture of the left posterior 11th rib near the transverse vertebral process . Left anterior 3rd to 5th ribs old healed fractures. Mild spondylosis of the scanned vertebrae. Upper Abdomen: Visualized portions of the liver, spleen, pancreas, adrenal glands, and kidneys are normal. No abnormalities noted in the visualized upper abdominal organs. Thyroid: Normal size and morphology. No nodules or masses. IMPRESSION: 1. Left posterior ninth rib incomplete fracture. 2. Simple displaced fracture of the left posterior and the lateral 10th and 11th ribs. 3. Left lateral 7th and 8th rib nondisplaced fracture. 4. Comminuted fracture of the left posterior 11th rib near the transverse vertebral process. 5. Left pleural mild thickening. 6. The CT confirms and details the CXR findings. CT Abdomen/Pelvis: EXAM: CT abd pelvis IV con only CLINICAL HISTORY: Trauma TECHNIQUE: CT of the abdomen and pelvis was performed without and with 93 ml optiray 320 contrast, with the following protocol: axial images, and reconstructed coronal and sagittal images. One of the following dose reduction techniques was utilized for this exam: Automated exposure control, adjustment of the mA and/or kV according to patient size, and use of iterative reconstruction. COMPARISON: None. FINDINGS: Abdomen: Liver: Mildly enlarged in size (18 cm in right lobe span), no focal lesion noted. No focal lesions, cysts, or masses were identified. Hepatic vasculature and biliary ducts are unremarkable. Gallbladder and Biliary System: The gallbladder is normal in size and shape. No wall thickening, pericholecystic fluid, or gallstones were identified. The common bile duct is normal in caliber without dilation. Pancreas: Pancreatic head, body, and tail are visualized and appear normal in size and density. No pancreatic masses or calcifications were noted. The pancreatic duct is not dilated. Spleen: Normal in size, shape, and density. No splenic lesions or masses were identified. Appendix: The appendix is normal in size without periappendiceal fat stranding and without an appendicolith. No evidence of appendiceal abscess or perforation. Kidneys and Adrenal Glands: Both kidneys are normal in size, shape, and position. Cortical thickness is within normal limits. No renal calculi or hydronephrosis. Nodular thickening of the left adrenal gland was noted. A small umbilical hernia harboring omental fat was noted. Pelvis: Urinary Bladder: Normal in contour and wall thickness. No intraluminal lesions identified. Uterus: Normal in size and contour. No masses or abnormal thickening. Ovaries: Not well visualized, but no gross abnormalities noted. Vagina: Vaginal pessary ring noted. Peritoneal and Retroperitoneal Structures: No free fluid or abnormal fluid collections were identified within the abdomen or pelvis. No lymphadenopathy was noted. Bowel: Multiple colonic diverticulosis with no signs of diverticulitis noted. Large duodenal diverticulum related to the third part of the duodenum with an air-fluid level noted. Mild proximal jejunal loop dilation reaching 29 mm in cross-section with no obstructing mass depicted. Bones and Soft Tissues: Left T12, T11, and T10 posterior rib fractures with fragmentation at the T12 level noted. Moderate spondylosis of the lumbar spine with marginal osteophytosis and right-sided scoliosis noted. Pelvic bones and soft tissues are unremarkable. No fractures or abnormal masses were identified. Minimal left-sided pleural effusion noted. IMPRESSION: 1. Left T12, T11, and T10 posterior rib fractures with fragmentation at the T12 level noted. 2. Moderate spondylosis of the lumbar spine with marginal osteophytosis and right-sided scoliosis noted. 3. Mild hepatomegaly noted. 4. Colonic diverticulosis with no signs of diverticulitis. 5. Evidence of duodenal diverticulum related to the 3rd part of the duodenum. PG Care Time/CCT Total # of Minutes Spent Total Time Spent with Patient: Total time spent is greater than 50% in coordination of care (as documented) at patient's floor/unit and/or counseling patient: [place] [address] IN/OBS CONSULT LVL 3,45M Patient Type New Medical Decision Making Straight Forward Diagnoses Multiple fractures of ribs S22.49XA
[2025-02-01] MEDS: CITALOPRAM 20 MG TAB PO SCH (08:37)
--- NOTE | 2025-02-01 09:26 | Electrocardiogram Report ---
Test Reason : Blood Pressure : */* mmHG Vent. Rate : 89 BPM Atrial Rate : 89 BPM P-R Int : 170 ms QRS Dur : 92 ms QT Int : 374 ms P-R-T Axes : 47 -24 50 degrees QTcB Int : 455 ms Normal sinus rhythm Minimal voltage criteria for LVH, may be normal variant Borderline ECG No previous ECGs available Confirmed by Leonardo Castillo ([id number]) on 02/01/2025 9:26:05 AM Referred By: REFERRED SELF Confirmed By: Leonardo Castillo
--- NOTE | 2025-02-01 09:48 | XRay Report ---
EXAM: XR chest 1V portable CLINICAL HISTORY: eval for opacities/effusions/pneumothoracies. TECHNIQUE: An X-ray image of the chest is obtained in AP projection. COMPARISON: 01/31/2025. FINDINGS: Pulmonary Parenchyma: Lungs are clear bilaterally. No evidence of consolidation, collapse, or focal opacities. No pulmonary nodules are identified. No evidence of pleural effusion or pleural thickening. Heart and Mediastinum: Heart size and shape are normal. No mediastinal widening or masses. No hilar or mediastinal lymphadenopathy. Bony Thorax: Stable minimally displaced fractures of left 9th and 10th ribs. Other rib fractures detected in the recent CT chest can`t be characterized on X-ray basis. Normal left shoulder joint arthropathy is seen. No loosening seen. Soft Tissues: Soft tissues overlying the chest wall are unremarkable. IMPRESSION: 1. No interval changes. 2. No acute cardiopulmonary abnormality. No radiographic evidence of airpsace opacities, pneumothorax or pleural effusion. 3. Stable minimally displaced fractures of left 9th and 10th ribs. Electronically signed by Kwabena Severino 02-01-2025 09:48 AM
[2025-02-01] MEDS: REMOVE LIDODERM PATCH SCH ×2 (11:04→21:13)
--- NOTE | 2025-02-01 11:10 | Hospitalist Progress Note ---
Date of Service February 01, 2025 Assessment & Plan (1) Acute hypoxemic respiratory failure: (2) Multiple fractures of ribs: (3) Fall from standing: (4) HTN (hypertension): Plan Patient 79-year-old female who had a standing fall in the bathroom. Evaluation subsequently revealed multiple rib fractures and some hypoxia. Reviewed surgical recommendations, monitor in ICU for 24 hours Follow chest x-ray in the morning Scheduled and as needed pain medications Activity as tolerated Titrate oxygen to off as able Encourage incentive spirometry Patient may need some rehabilitation while she continues to require rest assistance while her rib fractures improve discussed this with her Case management to help coordinate discharge planning Daughter at bedside and updated plan of care as well. Admission and Anticipated Discharge Date Admission Date: January 31, 2025 Subjective Patient reports that pain is a little bit better. Still requiring some oxygen. Daughter at bedside. Physical Exam Physical Exam: Constitutional: Alert, nontoxic HEENT: Mucous membranes moist. Lungs: Decreased breath sounds, poor inspiratory effort due to pain CV: S1-S2, regular Abdomen: Soft, nontender, nondistended Musculoskeletal: Tenderness palpation chest wall, left ribs, contusions noted Extremities: No significant edema Neuro: No focal deficits Psych: Cooperative, normal mood Results & Data Results & Data Vital Signs (Past 12 Hours) Vital Signs Temp Pulse Pulse Resp BP BP Pulse Ox 02/01/25 10:00 79 22 96 02/01/25 08:00 73 22 95 02/01/25 08:00 134/63 02/01/25 08:00 36.6 C 02/01/25 07:00 67 16 95 02/01/25 07:00 146/56 H 02/01/25 06:00 36.7 C 68 16 125/61 95 02/01/25 05:00 36.7 C 68 14 128/63 95 02/01/25 04:00 69 14 116/60 95 02/01/25 03:00 70 13 128/58 L 95 02/01/25 02:00 36.7 C 83 20 129/56 L 96 02/01/25 01:00 71 16 114/51 L 96 02/01/25 00:46 81 16 134/62 96 02/01/25 00:20 72 02/01/25 00:15 02/01/25 00:15 36.7 C 70 24 168/64 H 96 02/01/25 00:15 36.7 C 70 16 168/64 H 96 01/31/25 23:20 O2 Del Method O2 Flow Rate 02/01/25 10:00 02/01/25 08:00 02/01/25 08:00 02/01/25 08:00 02/01/25 07:00 02/01/25 07:00 02/01/25 06:00 Nasal Cannula 2 02/01/25 05:00 Nasal Cannula 2 02/01/25 04:00 Nasal Cannula 2 02/01/25 03:00 Room Air 02/01/25 02:00 Nasal Cannula 2 02/01/25 01:00 02/01/25 00:46 02/01/25 00:20 02/01/25 00:15 Nasal Cannula 2 02/01/25 00:15 Nasal Cannula 2 02/01/25 00:15 Nasal Cannula 2 01/31/25 23:20 Nasal Cannula 2 Diagnostic Findings Reviewed imaging, laboratory and diagnostic studies. Pertinent findings as below. Chest x-ray shows no interval change. No evidence of airspace disease. Stable rib fractures Creatinine 0.61 Electrolytes stable CBC stable
[2025-02-01] MEDS: LIDOCAINE 5% 1 PATCH TD SCH (12:50)
[2025-02-01] MEDS: BACLOFEN 10 MG TAB PO PRN (13:01)
[2025-02-01] MEDS: ENOXAPARIN INJ 40 MG/0.4 ML SYR SQ SCH (13:45)
[2025-02-01] MEDS: ACETAMINOPHEN 500 MG TAB PO SCH (13:45)
[2025-02-01] MEDS: DICLOFENAC SODIUM 25 MG TABDR PO SCH (14:23)
[2025-02-01] MEDS ORDERED: POLYETHYLENE (MIRALAX) 17 GM PACK PO PRN (19:45)
[2025-02-01] MEDS: DOCUSATE SODIUM/SENNA 50/8.6MG TAB PO SCH (21:13)
[2025-02-02] MEDS: HYDROmorphone INJ 0.5 MG/0.5 ML SYR IV PRN (03:55)
--- NOTE | 2025-02-02 04:01 | Communication Note ---
Date of Service: February 02, 2025 7989- Called to bedside urgently - Patient was in process of getting up to go to bathroom with nursing staff assisting, upon standing patient complained of sharp stabbing pain to her left lower flank and subsequently syncopized with loss of urine and required [address] back supine in bed. Patient then came to with some confusion. Upon me entering the room the patient was awake conversant and appropriate. When asked if it felt like she passed out or remembered the event, she just remembers the sharp pain in her left side and then being back in the bed. The patient states that this was a new pain and points to my left flank area when showing where her pain is and the pain is still present. - No event on telemetry noted as she was off monitor to get ready to go to the bathroom- upon hooking back up following event patient was tachycardic in the 100s without ectopy - She was noted to be hypertensive with strong pulses - Mild hypoxia in low 90s while on room air - lung sounds noted throughout bilaterally but decreased left lower Stat CXR obtained - No pneumothorax, haziness of left lower lobe- concern for hemothorax STAT CTA PE chest as well as abd/pelvis with IV contrast ordered to eval for PE vs. hemorrhage/bleed Stat CBC and BMP sent I am currently concerned for delayed hemorrhage or PE delayed hemothorax with multiple rib fractures or other organ injury- imaging above CTA chest notable for left hemothorax- we will place chest tube - see procedure notes and prepare patient for likely transfer pending fluid and amount of drainage following chest tube placement . My attending has been notified will be present at bedside. Daughter Audelia updated over phone with Daniel's phone and Indy on the line. Aris VELAZQUEZ ([facility]
[2025-02-02 04:28] LABS: Hematocrit (blood only) 38.3 % (37.0-47.0); Hemoglobin 12.7 g/dl (12.0-16.0); Immature Granulocytes # (auto) 0.07 K/uL (0.01-0.20); Immature Granulocytes % (auto) 0.7 %; Mean Corpuscular Hemoglobin 32.8 pg (25.0-34.0); Mean Corpuscular Volume 99.0 fL (80.0-100.0); Platelet Count 243 K/uL (130-400); RDW Standard Deviation 43.1 fL (36.4-46.3); Red Blood Count 3.87 M/uL (4.20-5.40); White Blood Count 10.33 K/ul (4.8-10.8)
[2025-02-02] MEDS: OPTIRAY 320 125ml IV ONE (04:29)
[2025-02-02] MEDS ORDERED: SODIUM CHLORIDE 0.9% 100 ML IV PRN (04:42)
[2025-02-02 04:43] LABS: Anion Gap 9.0 (3-11); Blood Urea Nitrogen 17.0 mg/dl (6-23); Calcium 8.5 mg/dl (8.6-10.3); Carbon Dioxide 22.0 mmol/L (21-32); Chloride 101.0 mmol/L (98-107); Creatinine Clr Calc Pharmacy 62.5 ml/min; Glucose 139.0 mg/dl (70-99(Fasting)); Potassium 4.2 mmol/L (3.5-5.1); Sodium 132.0 mmol/L (136-145)
[2025-02-02 05:03] LABS: Magnesium 2.0 mg/dl (1.7-2.4)
--- NOTE | 2025-02-02 05:06 | CT Scan Report ---
EXAM: CT abd pelvis IV con only CLINICAL HISTORY: None TECHNIQUE: Contiguous axial images were obtained from the level of the diaphragm to the pubic symphysis with intravenous contrast. Coronal and sagittal reconstructions were likewise performed and indicated to increase the sensitivity for detecting clinically relevant pathology. If IV contrast material had not been administered, the likelihood of detecting abnormalities relevant to the patient's condition would have been substantially decreased. CT scan was performed according to ALARA (as low as reasonable achievable). COMPARISON: 16:16:00 EXHIBITS COORDINATOR FINDINGS: Multiple displaced fractures are noted through left 8th to 12th rib. Moderate left side pleural effusion with internal hyperdensity( suggest blood clot)- hemothorax formation likely. The liver is normal in size and attenuation. No focal liver lesions are seen. There is no intra or extrahepatic biliary ductal dilatation. Hepatic vasculature is patent. The gallbladder is distended and shows intraluminal density/- sludge. No cholecystitis.. The spleen, pancreas, and adrenal glands are unremarkable. The kidneys are normal in size and attenuation. There is no hydronephrosis or perinephric fat stranding. No renal calculi or renal masses are identified. The ureters are normal in caliber and no ureteral calculi are seen. The bladder is normal in contour. Pelvic viscera are unremarkable. No focal or diffuse bowel wall thickening or evidence of bowel obstruction is identified. Abdominal and pelvic vasculature is patent. No adenopathy or fluid collections are seen. No aggressive appearing osseous lesions are identified. Degenerative changes involving visualized spine-stable. Multiple small uncomplicated sigmoid colonic diverticulosis Fat containing supraumbilical hernia. Rest unchanged. IMPRESSION: 1. Multiple displaced fractures are noted through left 8th to 12th rib.-stable. 2. Moderate left side pleural effusion with internal hyperdensity( suggest blood clot)- hemothorax formation likely. -increased 3. Multiple small uncomplicated sigmoid colonic diverticulosis-stable. 4. Fat containing supraumbilical hernia.-stable. Electronically signed by Chucky Ramírez 02-02-2025 05:06 AM
--- NOTE | 2025-02-02 05:11 | CT Scan Report ---
EXAM: CT angio chest PE protocol CLINICAL HISTORY: None TECHNIQUE: Contiguous axial images were obtained from the neck base through the upper abdomen following intravenous administration of iodinated contrast material. Angiographic images were processed, 3D MIP images were acquired for interpretation. If IV contrast material had not been administered, the likelihood of detecting abnormalities relevant to the patient's condition would have been substantially decreased. Coronal and sagittal 3-D MIPs were likewise performed and indicated to increase the sensitivity of detectin diffuse clinically relevant pathology. CT scan was performed according to ALARA (as low as reasonable achievable). COMPARISON: 01/31/2025 16:53:26 VAMP LINER FINDINGS: Adequate contrast bolus without evidence of pulmonary embolism. The central airways are patent. Gross left hemothorax with fissural extension and passive atelectasis of underlying lung. Mild pleural thickening and subsegmental atelectatic band in superior segment of right lower lobe. The heart, aorta, and pulmonary arteries are of normal size and configuration. There are no appreciable coronary artery and aortic atherosclerotic calcifications. No pericardial effusion is identified. The thyroid is unremarkable. No mediastinal, hilar, or axillary lymphadenopathy is noted. No suspicious lytic or sclerotic osseous lesions are identified. Left posterior ninth rib incomplete fracture. Simple displaced fracture of the left posterior and the lateral 10th and 11th ribs. Left lateral 7th and 8th rib nondisplaced fracture. Comminuted fracture of the left posterior 11th rib near the transverse vertebral process. Left posterolateral chest wall emphysema. IMPRESSION: 1. No evidence of pulmonary embolism. 2. Moderate left hemothorax with fissural extension and passive atelectasis of underlying lung. (significantly increased compared to the prior) 3. Mild pleural thickening and subsegmental atelectatic band in superior segment of right lower lobe. 4. Left posterior ninth rib incomplete fracture. 5. Simple displaced fracture of the left posterior and the lateral 10th and 11th ribs. 6. Left lateral 7th and 8th rib nondisplaced fracture. 7. Comminuted fracture of the left posterior 11th rib near the transverse vertebral process. 8. Left posterolateral chest wall emphysema. Electronically signed by Chucky Ramírez 02-02-2025 05:10 AM
--- NOTE | 2025-02-02 05:16 | XRay Report ---
EXAM: XR chest 1V portable CLINICAL HISTORY: EVAL FOR OPACITIES/EFFUSION/PNEUMO TECHNIQUE: An X-ray image of the chest is obtained in AP projection. COMPARISON: 02/01/2025 FINDINGS: Pulmonary Parenchyma: Newly developed left upper and middle lung zone ground glass airspace opacification. Newly developed moderate left pleural effusion. Heart and Mediastinum: Heart size and shape are normal. No mediastinal widening or masses. No hilar or mediastinal lymphadenopathy. Bony Thorax: Stable minimally displaced fractures of left 9th and 10th ribs. Other rib fractures detected in the recent CT chest can`t be characterized on X-ray basis. Intact left shoulder joint arthropathy is seen. No loosening seen. Soft Tissues: Soft tissues overlying the chest wall are unremarkable. IMPRESSION: 1. Newly developed left upper and middle lung zone ground glass airspace opacification; possibly inflammatory. Clinical correlation and follow-up are advised. 2. Newly developed moderate left pleural effusion. 3. Stable minimally displaced fractures of left 9th and 10th ribs. Electronically signed by Kwabena Severino 02-02-2025 05:15 AM
[2025-02-02] MEDS: NOREPINEPHRINE/D5W 4 MG/250 ML PLCT IV SCH (05:45)
--- NOTE | 2025-02-02 06:16 | Procedure Note ---
Procedure Note Date of Service February 02, 2025 Procedure Date: noted above Procedure: Tube thoracostomy Pre-procedure Diagnosis: Hemothorax Post-procedure Diagnosis: same as above Prior to Procedure: Informed Consent: The risks, benefits, indications, potential complications, and alternatives were explained to the patient/family and verbal informed consent obtained due to acuity of situation. Attending Staff: Nikki Aguiar DO Resident/Physician Bit Sharpener: Jose Zazueta Indications: The patient is a 79-year-old female with known rib fractures on the left side now with large volume infiltrate in the left chest requiring tube thoracostomy The identity of the patient was confirmed and a bedside time out was performed. Description of Procedure: Patient positioned, the left mid axillary line was prepped with chlorhexidine and draped in usual sterile fashion. 5 mL of 1% Lidocaine without epinephrine was used to anesthetize the area. A 1 cm incision was made in the mid axillary line. The subcutaneous tissues were bluntly dissected and care was taken to enter the chest cavity superior to the rib with my index finger. Large peacock of blood was noted. A 32 Fr chest tube was inserted with care into the apices and secured at approximately 15 cm to the chest wall with 0 silk suture. This was connected to a Pleur-evac which did not demonstrate an air leak. Specimen: Not applicable Complications: None Estimated blood loss: Approximately 1000 mL, initial drainage from chest was 900 mL and approximately 100 mL in bed. Post procedure chest x-ray has been ordered and reviewed [facility] [place] Procedure Codes (Charges) Pulmonary/Thoracic Procedure 1: Pulmonary and Thoracic: 86990 Tube thoracostomy Coding CPT Codes Pulmonary/Thoracic - Pulmonary and Thoracic: 21677 Tube thoracostomy ([id number]) Additional Codes Date of Service ([facility].[email or web address])
--- NOTE | 2025-02-02 06:17 | Procedure Note ---
Procedure Note Date of Service February 02, 2025 Procedure date: Noted above Procedure: Central venous access Pre-procedure indication: Need for vasoactive medication ministration and large volume crystalloid/blood infusion Post-procedure Diagnosis: same as above Prior to Procedure: Informed Consent: The risks, benefits, indications, potential complications, and alternatives were explained to the patient and daughter and verbal informed consent obtained. Attending Staff: Stella Aguiar DO Resident/APC: Alvin Zazueta Skin Prep: Chlorhexidine Anesthesia: 4 mL 1% lidocaine without epinephrine The identity of the patient was confirmed and a bedside time out was performed. Description of Procedure: After sterile prep and sterile drape utilizing standard sterile technique the superficial skin of the right internal jugular area was anesthetized. The target vessel was identified and entered with an 18-gauge needle. Dark venous blood return was noted. A guidewire was inserted through the needle and into the vessel. The needle was withdrawn and a skin igor was made. A tissue dilator was advanced via Seldinger technique and removed. A double lumen catheter was inserted via Seldinger technique and the guidewire removed. All ports kristine and flushed easily. A Biopatch was placed, and the catheter was secured via silk suture. A sterile dressing was then applied. All vessels identified under dynamic ultrasound guidance Complications: None Estimated blood loss: Trace Patient tolerated the procedure well. Procedure Date: Noted Above Procedure: Procedural Ultrasound Indication: Central venous access Attending: Stella Aguiar DO Resident/Physician Process Camera Operator: Not applicable Artery visualized: Yes Vein visualized: Yes Compressible Vein: Yes Vein patent: Yes Guidewire or Short Catheter seen in vein prior to dilation: Yes Line confirmed in Vein with ultrasound: Yes Lung Sliding on side of attempt (if applicable): NA If no lung sliding or not obtained has CXR been ordered: Yes Impression: Successful central venous access placement [facility] [place], [place] Procedure Codes (Charges) Tubes, Drains, and Vasc Access Procedure 1: Tubes, Drains, and Vasc Access: [id number] Insertion Of Non-tunneled Catheter A ge 7 Yrs> Coding CPT Codes Tubes, Drains, and Vasc Access - Tubes, Drains, and Vasc Access: [id number] Insertion Of Non-tunneled Catheter Age 7 Yrs> ([id number]) Additional Codes Date of Service ([facility].[email or web address])
[2025-02-02] MEDS ORDERED: STAT IV Infusion **Titration per Protocol STA (06:19)
--- NOTE | 2025-02-02 06:25 | Critical Care Progress Note ---
Date of Service February 02, 2025 Assessment & Plan (1) Hemothorax on left: Plan: Reason Critically Ill: 79-year-old female status post mechanical fall with multiple rib fractures on the left with delayed onset left hemothorax: Large volume PLAN: Neuro: Underwent sedation for placement of chest tube with 50 mcg fentanyl, 10 milligrams ketamine and later 1 mg Versed - Patient alert oriented no ill effects of medications Resp: Acute hypoxic respiratory failure - Supplemental oxygen at this time CV: Tachycardia - Compensatory secondary to acute blood loss anemia Fluids/Renal: Hyponatremia mild - Secondary to stress response GI/Nutrition: N.p.o. for possible OR given chest tube output Heme: Acute blood loss anemia secondary to left hemothorax - Initial output 1 L, staff emergently contacted [facility]: Dr. Diaz excepting - Prefer helicopter EMS transfer, they are whether checking in 1 hour as weather is adverse if unable to transport via helicopter will proceed with ground - Given large volume output proceeded with 2 units uncrossed unmatched packed red blood cells we will continue to monitor chest tube output DVT prophylaxis: SCDs Endocrine: ICU hyperglycemia protocol Vascular access: Right IJ introducer Code Status: Full code Disposition: ICU, patient accepted in transfer to [facility] (2) Fall from standing: (3) Multiple fractures of ribs: (4) Acute pain: (5) Acute hypoxemic respiratory failure: (6) Blood loss anemia: Admission and Anticipated Discharge Date Admission Date: January 31, 2025 Supervising Physician Co-Signing Physician Notes I have personally spent 95 minutes of critical care time in the direct management of this patient. This is a life/limb threatening event. This includes time spent evaluating patient, direct bedside care, chart review, placing orders, interpretation of diagnostic studies, discussion with consultants, patient, and/or family members regarding treatment decisions, as well as other required patient management activities. This time is exclusive of all separately billable procedures, and teaching time and separate from and in addition to any other critical care service time. Subjective Overnight events patient had a syncopal episode was noted to have large volume pleural effusion on chest x-ray which was subsequently underwent CT scan. During my evaluation the patient was alert oriented, undergoing dynamic ultrasound patient had large volume pleural effusion consistent with hemothorax given density lines and decision was made to place chest tube. Physical Exam Physical Exam: General: Alert. nontoxic. Skin: Warm, dry, Head: Atraumatic Ears, nose, mouth and throat: airway patent Cardiovascular: Normal peripheral perfusion, mild tachycardia on bedside monitor Respiratory: no respiratory distress Gastrointestinal: Non distended Musculoskeletal: Ecchymoses over left lateral and posterior chest wall Results & Data Results & Data Vital Signs (Past 12 Hours) Vital Signs Temp Pulse Pulse Resp BP BP BP 02/02/25 03:00 78 13 149/62 H 02/02/25 02:00 79 14 149/60 H 02/02/25 01:00 72 14 145/68 H 02/02/25 01:00 02/02/25 00:00 36.8 C 76 14 162/73 H 02/01/25 23:00 74 02/01/25 23:00 78 13 125/62 02/01/25 22:00 74 12 02/01/25 22:00 129/56 L 02/01/25 21:00 128/70 02/01/25 21:00 02/01/25 20:54 69 13 02/01/25 20:03 79 27 H 02/01/25 20:00 127/50 L 02/01/25 20:00 36.8 C 73 16 127/50 L 02/01/25 19:45 02/01/25 19:14 74 02/01/25 19:00 74 15 107/71 02/01/25 19:00 107/71 02/01/25 18:39 77 12 Pulse Ox Pulse Ox O2 Del Method O2 Del Method 02/02/25 03:00 92 Room Air 02/02/25 02:00 92 Room Air 02/02/25 01:00 95 Room Air 02/02/25 01:00 94 Room Air 02/02/25 00:00 92 Room Air 02/01/25 23:00 02/01/25 23:00 94 Room Air 02/01/25 22:00 90 02/01/25 22:00 02/01/25 21:00 02/01/25 21:00 99 Room Air 02/01/25 20:54 93 02/01/25 20:03 92 02/01/25 20:00 02/01/25 20:00 95 Room Air 02/01/25 19:45 Room Air 02/01/25 19:14 02/01/25 19:00 92 Room Air 02/01/25 19:00 02/01/25 18:39 89 L Critical Care Results & Data Vital Signs (Past 12 Hours) Vital Signs Temp Pulse Pulse Resp BP BP BP 02/02/25 03:00 78 13 149/62 H 02/02/25 02:00 79 14 149/60 H 02/02/25 01:00 72 14 145/68 H 02/02/25 01:00 02/02/25 00:00 36.8 C 76 14 162/73 H 02/01/25 23:00 74 02/01/25 23:00 78 13 125/62 02/01/25 22:00 74 12 02/01/25 22:00 129/56 L 02/01/25 21:00 128/70 02/01/25 21:00 02/01/25 20:54 69 13 02/01/25 20:03 79 27 H 02/01/25 20:00 127/50 L 02/01/25 20:00 36.8 C 73 16 127/50 L 02/01/25 19:45 02/01/25 19:14 74 02/01/25 19:00 74 15 107/71 02/01/25 19:00 107/71 02/01/25 18:39 77 12 Pulse Ox Pulse Ox O2 Del Method O2 Del Method 02/02/25 03:00 92 Room Air 02/02/25 02:00 92 Room Air 02/02/25 01:00 95 Room Air 02/02/25 01:00 94 Room Air 02/02/25 00:00 92 Room Air 02/01/25 23:00 02/01/25 23:00 94 Room Air 02/01/25 22:00 90 02/01/25 22:00 02/01/25 21:00 02/01/25 21:00 99 Room Air 02/01/25 20:54 93 02/01/25 20:03 92 02/01/25 20:00 02/01/25 20:00 95 Room Air 02/01/25 19:45 Room Air 02/01/25 19:14 02/01/25 19:00 92 Room Air 02/01/25 19:00 02/01/25 18:39 89 L Lab & Micro Results (Past 24 Hours) RBC 3.87 M/uL (4.20-5.40) L 02/02/25 WBC 10.33 K/ul (4.8-10.8) 02/02/25 Hgb 12.7 g/dl (12.0-16.0) 02/02/25 Hct 38.3 % (37.0-47.0) 02/02/25 MCV 99.0 fL (80.0-100.0) 02/02/25 MCH 32.8 pg (25.0-34.0) 02/02/25 MCHC 33.2 g/dL (32.0-36.0) 02/02/25 RDW Standard Deviation 43.1 fL (36.4-46.3) 02/02/25 RDW Coefficient of Variation 11.8 % (11.5-14.5) 02/02/25 Plt Count 243 K/uL (130-400) 02/02/25 MPV 10.3 fL (9.4-12.4) 02/02/25 Neutrophils (%) (Auto) 63.9 % 02/02/25 Lymphocytes (%) (Auto) 26.3 % 02/02/25 Monocytes # (Auto) 0.73 K/uL (0.11-0.59) H 02/02/25 Eosinophils # (Auto) 0.14 K/uL (0.00-0.50) 02/02/25 Immature Granulocyte % (Auto) 0.7 % 02/02/25 Neutrophils # (Auto) 6.61 K/uL (1.40-6.50) H 02/02/25 Lymphocytes # (Auto) 2.72 K/uL (1.20-3.40) 02/02/25 Monocytes # (Auto) 0.73 K/uL (0.11-0.59) H 02/02/25 Eosinophils # (Auto) 0.14 K/uL (0.00-0.50) 02/02/25 Basophils # (Auto) 0.06 K/uL (0.00-0.20) 02/02/25 Immature Granulocyte # (Auto) 0.07 K/uL (0.01-0.20) 5 Na 132 mmol/L (136-145) L 02/02/25 K 4.2 mmol/L (3.5-5.1) 02/02/25 Cl 101 mmol/L (98-107) 02/02/25 CO2 22 mmol/L (21-32) 02/02/25 Anion Gap 9 (3-11) 02/02/25 BUN 17 mg/dl (6-23) 02/02/25 Creatinine 0.69 mg/dl (0.6-1.2) 02/02/25 BUN/Creatinine Ratio 24.6 (10-20) H 02/02/25 Glu 139 mg/dl (70-99(Fasting)) H 02/02/25 Ca 8.5 mg/dl (8.6-10.3) L 02/02/25 Mg 2.0 mg/dl (1.7-2.4) 02/02/25 04:14 Calcium Level 8.5 mg/dl (8.6-10.3) L 02/02/25 04:14 Diagnostic Findings (Past 24 Hours) Chest X-Ray 02/01/25 05:00 EXAM: XR chest 1V portable CLINICAL HISTORY: eval for opacities/effusions/pneumothoracies. TECHNIQUE: An X-ray image of the chest is obtained in AP projection. COMPARISON: 01/31/2025. FINDINGS: Pulmonary Parenchyma: Lungs are clear bilaterally. No evidence of consolidation, collapse, or focal opacities. No pulmonary nodules are identified. No evidence of pleural effusion or pleural thickening. Heart and Mediastinum: Heart size and shape are normal. No mediastinal widening or masses. No hilar or mediastinal lymphadenopathy. Bony Thorax: Stable minimally displaced fractures of left 9th and 10th ribs. Other rib fractures detected in the recent CT chest can`t be characterized on X-ray basis. Normal left shoulder joint arthropathy is seen. No loosening seen. Soft Tissues: Soft tissues overlying the chest wall are unremarkable. IMPRESSION: 1. No interval changes. 2. No acute cardiopulmonary abnormality. No radiographic evidence of airpsace opacities, pneumothorax or pleural effusion. 3. Stable minimally displaced fractures of left 9th and 10th ribs. Electronically signed by Kwabena Severino 02-01-2025 09:48 AM Abdomen/Pelvis CT 02/02/25 03:56 EXAM: CT abd pelvis IV con only CLINICAL HISTORY: None TECHNIQUE: Contiguous axial images were obtained from the level of the diaphragm to the pubic symphysis with intravenous contrast. Coronal and sagittal reconstructions were likewise performed and indicated to increase the sensitivity for detecting clinically relevant pathology. If IV contrast material had not been administered, the likelihood of detecting abnormalities relevant to the patient's condition would have been substantially decreased. CT scan was performed according to ALARA (as low as reasonable achievable). COMPARISON: 16:16:00 INSERTER FINDINGS: Multiple displaced fractures are noted through left 8th to 12th rib. Moderate left side pleural effusion with internal hyperdensity( suggest blood clot)- hemothorax formation likely. The liver is normal in size and attenuation. No focal liver lesions are seen. There is no intra or extrahepatic biliary ductal dilatation. Hepatic vasculature is patent. The gallbladder is distended and shows intraluminal density/- sludge. No cholecystitis.. The spleen, pancreas, and adrenal glands are unremarkable. The kidneys are normal in size and attenuation. There is no hydronephrosis or perinephric fat stranding. No renal calculi or renal masses are identified. The ureters are normal in caliber and no ureteral calculi are seen. The bladder is normal in contour. Pelvic viscera are unremarkable. No focal or diffuse bowel wall thickening or evidence of bowel obstruction is identified. Abdominal and pelvic vasculature is patent. No adenopathy or fluid collections are seen. No aggressive appearing osseous lesions are identified. Degenerative changes involving visualized spine-stable. Multiple small uncomplicated sigmoid colonic diverticulosis Fat containing supraumbilical hernia. Rest unchanged. IMPRESSION: 1. Multiple displaced fractures are noted through left 8th to 12th rib.-stable. 2. Moderate left side pleural effusion with internal hyperdensity( suggest blood clot)- hemothorax formation likely. -increased 3. Multiple small uncomplicated sigmoid colonic diverticulosis-stable. 4. Fat containing supraumbilical hernia.-stable. Electronically signed by Chucky Ramírez 02-02-2025 05:06 AM Chest CTA 02/02/25 04:14 EXAM: CT angio chest PE protocol CLINICAL HISTORY: None TECHNIQUE: Contiguous axial images were obtained from the neck base through the upper abdomen following intravenous administration of iodinated contrast material. Angiographic images were processed, 3D MIP images were acquired for interpretation. If IV contrast material had not been administered, the likelihood of detecting abnormalities relevant to the patient's condition would have been substantially decreased. Coronal and sagittal 3-D MIPs were likewise performed and indicated to increase the sensitivity of detectin diffuse clinically relevant pathology. CT scan was performed according to ALARA (as low as reasonable achievable). COMPARISON: 01/31/2025 16:53:26 INSERTER FINDINGS: Adequate contrast bolus without evidence of pulmonary embolism. The central airways are patent. Gross left hemothorax with fissural extension and passive atelectasis of underlying lung. Mild pleural thickening and subsegmental atelectatic band in superior segment of right lower lobe. The heart, aorta, and pulmonary arteries are of normal size and configuration. There are no appreciable coronary artery and aortic atherosclerotic calcifications. No pericardial effusion is identified. The thyroid is unremarkable. No mediastinal, hilar, or axillary lymphadenopathy is noted. No suspicious lytic or sclerotic osseous lesions are identified. Left posterior ninth rib incomplete fracture. Simple displaced fracture of the left posterior and the lateral 10th and 11th ribs. Left lateral 7th and 8th rib nondisplaced fracture. Comminuted fracture of the left posterior 11th rib near the transverse vertebral process. Left posterolateral chest wall emphysema. IMPRESSION: 1. No evidence of pulmonary embolism. 2. Moderate left hemothorax with fissural extension and passive atelectasis of underlying lung. (significantly increased compared to the prior) 3. Mild pleural thickening and subsegmental atelectatic band in superior segment of right lower lobe. 4. Left posterior ninth rib incomplete fracture. 5. Simple displaced fracture of the left posterior and the lateral 10th and 11th ribs. 6. Left lateral 7th and 8th rib nondisplaced fracture. 7. Comminuted fracture of the left posterior 11th rib near the transverse vertebral process. 8. Left posterolateral chest wall emphysema. Electronically signed by Chucky Ramírez 02-02-2025 05:10 AM Chest X-Ray 02/02/25 05:00 EXAM: XR chest 1V portable CLINICAL HISTORY: EVAL FOR OPACITIES/EFFUSION/PNEUMO TECHNIQUE: An X-ray image of the chest is obtained in AP projection. COMPARISON: 02/01/2025 FINDINGS: Pulmonary Parenchyma: Newly developed left upper and middle lung zone ground glass airspace opacification. Newly developed moderate left pleural effusion. Heart and Mediastinum: Heart size and shape are normal. No mediastinal widening or masses. No hilar or mediastinal lymphadenopathy. Bony Thorax: Stable minimally displaced fractures of left 9th and 10th ribs. Other rib fractures detected in the recent CT chest can`t be characterized on X-ray basis. Intact left shoulder joint arthropathy is seen. No loosening seen. Soft Tissues: Soft tissues overlying the chest wall are unremarkable. IMPRESSION: 1. Newly developed left upper and middle lung zone ground glass airspace opacification; possibly inflammatory. Clinical correlation and follow-up are advised. 2. Newly developed moderate left pleural effusion. 3. Stable minimally displaced fractures of left 9th and 10th ribs. Electronically signed by Kwabena Severino 02-02-2025 05:15 AM I & O Totals 24 Hours 01/31/25 02/01/25 02/02/25 06:59 06:59 06:59 Intake Total 350 / 350 1000 / 1000 Output Total 600 / 600 250 / 250 Balance -250 / -250 750 / 750 Cumulative 01/31/25 16:53 thru 02/01/25 21:05 Intake Total 1350 Output Total 850 Balance 500 RT Ventilator Mngmt (Last Documented) Ventilator Ordered Settings Respiratory Rate 13 02/02/25 03:00 Ventilator - PT Measurements Respiratory Rate 13 Coding Level of Care Code 49636 CRITICAL CARE 1ST 30-74M Additional Critical Care Time Additional 30min Critical Care Time: Yes - 18958 Diagnoses Hemothorax on left J94.2 Fall from standing, initial encounter W19.XXXA Encounter type: initial encounter Closed fracture of multiple ribs of left side, initial encounter S22.42XA Encounter type: initial encounter Fracture type: closed Laterality: left Acute pain R52 Acute hypoxemic respiratory failure J96.01 Blood loss anemia D50.0 Additional Codes Critical Care Time - Additional 30min Critical Care Time: Yes - 06596 ([id number]) (2) Fall from standing Encounter type: initial encounter Qualified Code(s): W19.XXXA - Unspecified fall, initial encounter (3) Multiple fractures of ribs Encounter type: initial encounter Fracture type: closed Laterality: left Qualified Code(s): S22.42XA - Multiple fractures of ribs, left side, initial encounter for closed fracture
--- NOTE | 2025-02-02 06:25 | Discharge Summary ---
Date of Service February 02, 2025 Admission HPI Per Admitting Provider History obtained from patient, family, and records. Medical history significant for hypertension, GERD, mood disorder, daily alcohol intake, past tobacco abuse. Patient is a resident of [place], [place] currently visiting daughter who resides locally. Patient lost her footing on her way to the bathroom leading to her falling down and hitting the toilet with the left side of her body. Pleuritic chest pain with some SOB. No hemoptysis. No head trauma or LOC. Patient had trouble getting up from pain. Patient transported to ER by EMS. Patient refused transfer to trauma center for evaluation and management of multiple rib fractures. Lowest O2 sats of 80s documented at the ER. 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8 pg (25.0-34.0) 02/02/25 04:14 MCHC 33.2 g/dL (32.0-36.0) 02/02/25 04:14 RDW Std Deviation 43.1 fL (36.4-46.3) 02/02/25 04:14 RDW Coeff of Riley 11.8 % (11.5-14.5) 02/02/25 04:14 Plt Count 243 K/uL (130-400) 02/02/25 04:14 MPV 10.3 fL (9.4-12.4) 02/02/25 04:14 Immature Gran % (Auto) 0.7 % 02/02/25 04:14 Neut % (Auto) 63.9 % 02/02/25 04:14 Lymph % (Auto) 26.3 % 02/02/25 04:14 Seward % (Auto) 7.1 % 02/02/25 04:14 Eos % (Auto) 1.4 % 02/02/25 04:14 Baso % (Auto) 0.6 % 02/02/25 04:14 Neut # (Auto) 6.61 K/uL (1.40-6.50) H 02/02/25 04:14 Lymph # (Auto) 2.72 K/uL (1.20-3.40) 02/02/25 04:14 Seward # (Auto) 0.73 K/uL (0.11-0.59) H 02/02/25 04:14 Eos # (Auto) 0.14 K/uL (0.00-0.50) 02/02/25 04:14 Baso # (Auto) 0.06 K/uL (0.00-0.20) 02/02/25 04:14 Immature Gran # (Auto) 0.07 K/uL (0.01-0.20) 02/02/25 04:14 PT 10.5 Seconds (9.0-12.0) 01/31/25 17:12 INR 1.0 (0.9-1.1) 01/31/25 17:12 APTT 21 Seconds (21-31) 01/31/25 17:12 PTT Ratio 0.8 01/31/25 17:12 VBG pH 7.35 (7.36-7.41) L 01/31/25 21:47 VBG pCO2 47 mmHg (38-50) 01/31/25 21:47 VBG pO2 68 mmHg 01/31/25 21:47 VBG HCO3 26 mmol/L 01/31/25 21:47 VBG O2 Saturation 93.9 % 01/31/25 21:47 VBG Base Excess -0.2 mEq/L 01/31/25 21:47 POC Sodium 135 mmol/L (135-144) 01/31/25 17:16 Sodium 132 mmol/L (136-145) L 02/02/25 04:14 POC Potassium 4.0 mmol/L (3.3-5.0) 01/31/25 17:16 Potassium 4.2 mmol/L (3.5-5.1) 02/02/25 04:14 POC Chloride 105 mmol/L (101-112) 01/31/25 17:16 Chloride 101 mmol/L (98-107) 02/02/25 04:14 Carbon Dioxide 22 mmol/L (21-32) 02/02/25 04:14 POC Total CO2 22 mmol/L (24-31) L 01/31/25 17:16 Anion Gap 9 (3-11) 02/02/25 04:14 POC Anion Gap 13.0 mmol/L (16-25) L 01/31/25 17:16 POC BUN 24 mg/dl (7-18) H 01/31/25 17:16 BUN 17 mg/dl (6-23) 02/02/25 04:14 Creatinine 0.69 mg/dl (0.6-1.2) 02/02/25 04:14 POC Creatinine 0.7 mg/dl (0.6-1.3) 01/31/25 17:16 Est Cr Clr Drug Dosing 62.5 ml/min 02/02/25 04:14 eGFR 89.33 02/02/25 04:14 BUN/Creatinine Ratio 24.6 (10-20) H 02/02/25 04:14 Glucose 139 mg/dl (70-99(Fasting)) H 02/02/25 04:14 POC Glucose 159 mg/dl (70-99) H 02/02/25 04:03 POC Glucose (other) 121 mg/dl (70-99) H 01/31/25 17:16 Estimat Average Glucose 103 mg/dl 01/31/25 17:12 Hemoglobin A1c 5.2 % (4.5-5.6) 01/31/25 17:12 Calcium 8.5 mg/dl (8.6-10.3) L 02/02/25 04:14 POC Ioniz Calcium Maida 1.04 mmol/l (1.12-1.32) L 01/31/25 17:16 Phosphorus 5.0 mg/dl (2.5-4.9) H 02/01/25 04:54 Magnesium 2.0 mg/dl (1.7-2.4) 02/02/25 04:14 Total Bilirubin 0.4 mg/dl (0.2-1.0) 01/31/25 17:12 AST 24 U/L (13-39) 01/31/25 17:12 ALT 14 U/L (7-52) 01/31/25 17:12 Alkaline Phosphatase 66 U/L (34-104) 01/31/25 17:12 Total Protein 7.4 gm/dl (6.0-8.3) 01/31/25 17:12 Albumin 4.4 gm/dl (3.4-5.0) 01/31/25 17:12 Globulin 3.0 gm/dl (2.5-4.0) 01/31/25 17:12 Albumin/Globulin Ratio 1.5 (0.9-2) 01/31/25 17:12 Lipase 50 U/L (11-82) 01/31/25 17:12 Nasal Screen MRSA (PCR) Negative (Negative) 02/01/25 00:52 Blood Type B Positive 02/02/25 04:48 Blood Type Recheck B Positive 02/02/25 04:14 Antibody Screen NEGATIVE 02/02/25 04:48 Crossmatch See Detail 02/02/25 04:[address] 01/31/25 17:09 EXAM: CT cervical spine wo con CLINICAL HISTORY: Trauma. TECHNIQUE: CT scan of the cervical spine was performed without the administration of intravenous contrast. Contiguous axial images were obtained from the skull base to the upper thoracic spine. Coronal and sagittal reformatted images were also reviewed. One of the following dose reduction techniques was utilized for this exam. Automated exposure control, adjustment of the mA and/or kV according to patient size, and use of iterative reconstruction. COMPARISON: No previous studies are available for comparison. FINDINGS: Vertebrae: Marked spondylosis of the cervical spine noted. The vertebral bodies are normal in height and alignment. No evidence of acute fracture or dislocation. The cortical and trabecular bone patterns are normal. No signs of lytic or sclerotic lesions. Normal configuration of the posterior elements. Intervertebral Discs: C3-4 mild posterolateral disc/osteophyte protrusion is seen abutting the ventral theca with mild left side exit neural foraminal encroachment. C4-5 mild posterolateral disc/osteophyte protrusion is seen abutting the ventral theca with mild left side exit neural foraminal encroachment. C5-6 posterior disc/osteophyte protrusion is seen abutting the ventral theca with mild to moderate bilateral exit neural foraminal encroachment. C6-7 posterior disc/osteophyte protrusion abutting the ventral theca with right side exit neural foraminal compromise. 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 Neural Foramina: The neural foramina are patent bilaterally at all levels. No evidence of foraminal narrowing or nerve root compression. Prevertebral Soft Tissues: The prevertebral soft tissues are normal in thickness without evidence of mass or abnormal fluid collection. Additional Findings: No other significant findings are noted in the visualized soft tissue structures or bony elements. IMPRESSION: 1. Marked spondylolysis of the cervical spine. 2. Multilevel degenerative disc protrusions noted. 3. 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 4. No acute fracture. Electronically signed by Kwabena Severino 01-31-2025 7:[address] 01/31/25 17:09 EXAM: CT chest diagnostic w con CLINICAL HISTORY: Trauma. TECHNIQUE: Contiguous 3.[address] images of the chest were acquired with administration of 93ml Opitray-320mg/ml intravenous contrast. Coronal and sagittal reconstructions were obtained. One of the following dose reduction techniques was utilized for this exam: Automated exposure control, adjustment of the mA and/or kV according to patient size, and use of iterative reconstruction COMPARISON: 01/31/2025 16:26:00 [employer] SPECIALIST CXR. FINDINGS: Lungs: Lungs are clear with no evidence of consolidation, collapse, or focal lesions. No ground-glass opacities or interstitial changes. Mediastinum: No mediastinal mass or abnormal lymphadenopathy. Normal appearance of the thymus. Hilar Structures: Normal size and configuration, no enlargement. Heart and Great Vessels: Normal heart size and configuration. No pericardial effusion. Normal caliber and course of the thoracic aorta and other great vessels. No significant atherosclerosis or aneurysm. Normal enhancement of the great vessels post-contrast. Pulmonary Arteries: No evidence of pulmonary embolism. Normal size and course of the pulmonary arteries. Esophagus: Normal course and caliber. No masses or dilatation. Bones: No fractures or lytic/sclerotic lesions. Normal bone density and alignment. No evidence of rib fractures. Chest Wall: Left posterior ninth rib incomplete fracture Simple displaced fracture of the left posterior and the lateral 10th and 11th ribs. Left lateral 7th and 8th rib nondisplaced fracture. Comminuted fracture of the left posterior 11th rib near the transverse vertebral process . Left anterior 3rd to 5th ribs old healed fractures. Mild spondylosis of the scanned vertebrae. Upper Abdomen: Visualized portions of the liver, spleen, pancreas, adrenal glands, and kidneys are normal. No abnormalities noted in the visualized upper abdominal organs. Thyroid: Normal size and morphology. No nodules or masses. IMPRESSION: 1. Left posterior ninth rib incomplete fracture. 2. Simple displaced fracture of the left posterior and the lateral 10th and 11th ribs. 3. Left lateral 7th and 8th rib nondisplaced fracture. 4. Comminuted fracture of the left posterior 11th rib near the transverse vertebral process. 5. Left pleural mild thickening. 6. The CT confirms and details the CXR findings. Electronically signed by Kwabena Severino 01-31-2025 7:[address] 01/31/25 17:09 EXAM: CT head/brain wo con CLINICAL HISTORY: trauma. TECHNIQUE: Axial non-contrast CT scan of the brain was performed from the skull base to the high parietal region. One of the following dose reduction techniques were utilized for this exam: Automated exposure control, adjustment of the mA and/or kV according to patient size, use of iterative reconstruction. COMPARISON: None. FINDINGS: Brain Parenchyma: Age-appropriate cortical changes are evident by mildly dilated sulci and ventricles. Accentuated periventricular hypodensity with tiny ill-defined foci seen at the bilateral centrum semioval and watershed areas indicating deep white matter microvascular ischemia. Normal attenuation of the cerebral hemispheres, cerebellum, and brainstem. No evidence of acute infarct, hemorrhage, or mass effect. No abnormal areas of hypo- or hyperattenuation. No evidence of hydrocephalus or ventricular enlargement. No evidence of subarachnoid hemorrhage or extra-axial fluid collections. Cerebellum and Brainstem: No masses, lesions, or areas of abnormal density. Orbits: Normal appearance of the globes, optic nerves, and extraocular muscles. No evidence of orbital masses or abnormal density. Sinuses: Clear paranasal sinuses. No evidence of sinusitis or mucosal thickening. Mastoid Air Cells: Clear mastoid air cells. No evidence of mastoiditis. Skull: Hyperostosis frontalis interna IMPRESSION: 1. No CT signs of intracranial acute traumatic changes. 2. Mild age-appropriate cortical changes with deep white matter microvascular ischemia. Electronically signed by Kwabena Severino 01-31-2025 7:36 PM Abdomen/Pelvis CT 02/02/25 03:56 EXAM: CT abd pelvis IV con only CLINICAL HISTORY: None TECHNIQUE: Contiguous axial images were obtained from the level of the diaphragm to the pubic symphysis with intravenous contrast. Coronal and sagittal reconstructions were likewise performed and indicated to increase the sensitivity for detecting clinically relevant pathology. If IV contrast material had not been administered, the likelihood of detecting abnormalities relevant to the patient's condition would have been substantially decreased. CT scan was performed according to ALARA (as low as reasonable achievable). COMPARISON: 16:16:00 [employer] SPECIALIST FINDINGS: Multiple displaced fractures are noted through left 8th to 12th rib. Moderate left side pleural effusion with internal hyperdensity( suggest blood clot)- hemothorax formation likely. The liver is normal in size and attenuation. No focal liver lesions are seen. There is no intra or extrahepatic biliary ductal dilatation. Hepatic vasculature is patent. The gallbladder is distended and shows intraluminal density/- sludge. No cholecystitis.. The spleen, pancreas, and adrenal glands are unremarkable. The kidneys are normal in size and attenuation. There is no hydronephrosis or perinephric fat stranding. No renal calculi or renal masses are identified. The ureters are normal in caliber and no ureteral calculi are seen. The bladder is normal in contour. Pelvic viscera are unremarkable. No focal or diffuse bowel wall thickening or evidence of bowel obstruction is identified. Abdominal and pelvic vasculature is patent. No adenopathy or fluid collections are seen. No aggressive appearing osseous lesions are identified. Degenerative changes involving visualized spine-stable. Multiple small uncomplicated sigmoid colonic diverticulosis Fat containing supraumbilical hernia. Rest unchanged. IMPRESSION: 1. Multiple displaced fractures are noted through left 8th to 12th rib.-stable. 2. Moderate left side pleural effusion with internal hyperdensity( suggest blood clot)- hemothorax formation likely. -increased 3. Multiple small uncomplicated sigmoid colonic diverticulosis-stable. 4. Fat containing supraumbilical hernia.-stable. Electronically signed by Chucky Ramírez 02-02-2025 05:06 AM Chest CTA 02/02/25 04:14 EXAM: CT angio chest PE protocol CLINICAL HISTORY: None TECHNIQUE: Contiguous axial images were obtained from the neck base through the upper abdomen following intravenous administration of iodinated contrast material. Angiographic images were processed, 3D MIP images were acquired for interpretation. If IV contrast material had not been administered, the likelihood of detecting abnormalities relevant to the patient's condition would have been substantially decreased. Coronal and sagittal 3-D MIPs were likewise performed and indicated to increase the sensitivity of detectin diffuse clinically relevant pathology. CT scan was performed according to ALARA (as low as reasonable achievable). COMPARISON: 01/31/2025 16:53:26 [employer] SPECIALIST FINDINGS: Adequate contrast bolus without evidence of pulmonary embolism. The central airways are patent. Gross left hemothorax with fissural extension and passive atelectasis of underlying lung. Mild pleural thickening and subsegmental atelectatic band in superior segment of right lower lobe. The heart, aorta, and pulmonary arteries are of normal size and configuration. There are no appreciable coronary artery and aortic atherosclerotic calcifications. No pericardial effusion is identified. The thyroid is unremarkable. No mediastinal, hilar, or axillary lymphadenopathy is noted. No suspicious lytic or sclerotic osseous lesions are identified. Left posterior ninth rib incomplete fracture. Simple displaced fracture of the left posterior and the lateral 10th and 11th ribs. Left lateral 7th and 8th rib nondisplaced fracture. Comminuted fracture of the left posterior 11th rib near the transverse vertebral process. Left posterolateral chest wall emphysema. IMPRESSION: 1. No evidence of pulmonary embolism. 2. Moderate left hemothorax with fissural extension and passive atelectasis of underlying lung. (significantly increased compared to the prior) 3. Mild pleural thickening and subsegmental atelectatic band in superior segment of right lower lobe. 4. Left posterior ninth rib incomplete fracture. 5. Simple displaced fracture of the left posterior and the lateral 10th and 11th ribs. 6. Left lateral 7th and 8th rib nondisplaced fracture. 7. Comminuted fracture of the left posterior 11th rib near the transverse vertebral process. 8. Left posterolateral chest wall emphysema. Electronically signed by Chucky Ramírez 02-02-2025 05:10 AM Hospital Course (1) Hemothorax on left: Overnight patient had a syncopal event. Chest xray and CTA chest and ct abd/pelvis with iv contrast showed large left hemothorax. S/p urgent chest tube placement by critical care and had initial output of 1lt. [facility] was emergently contacted and accepted the patient and patient will be life flighted soon. Two units prbc ordered. Morning labs showing hb 12.7. Last Progress notes by : (1) Acute hypoxemic respiratory failure: (2) Multiple fractures of ribs: (3) Fall from standing: (4) HTN (hypertension): Plan Patient 79-year-old female who had a standing fall in the bathroom. Evaluation subsequently revealed multiple rib fractures and some hypoxia. Reviewed surgical recommendations, monitor in ICU for 24 hours Follow chest x-ray in the morning Scheduled and as needed pain medications Activity as tolerated Titrate oxygen to off as able Encourage incentive spirometry Total Time Total Time Spent Total Time Spent (In Minutes): 30minutes Discharge Plan Discharge Items Patient Disposition: Transfer Acute Care Hospital Reason For Visit: RESP FAILURE Discharge Diagnosis: Traumatic hemothorax Condition on Discharge: Serious Activity: As commented below Activity Comment: Bed rest Non-emergency contact: Primary Care Provider Call non-emergency contact if: your symptoms worsen Follow-up/Referrals: PCP,NO [Primary Care Provider] - Diet: Nothing by Mouth Addtl Attending Provider Instructions: Has Central line iv dilaudid 0.5mg q hrs prn pain. Getting two units prbc now Pending Studies at Discharge: No Stand-Alone Forms: My [facility] [employer] Skilled Items Patient informed of condition?: Yes DNR: No Discharge Level of Care: Other Communicable Disease: No Discharge Prognosis: Other Lines: Peripheral IV Urinary Catheter: Yes Medications and DC Order Prescriptions: Continued omeprazole 40 mg capsule,delayed release(DR/EC) 40 mg PO QAM Held citalopram 10 mg tablet 10 mg PO QAM Hold Instructions: Resume on 02/02/25. ibuprofen [Advil] 200 mg Tablet 200 mg PO Q6H PRN (Reason: Pain) Hold Instructions: Resume on 02/02/25. lisinopril 5 mg tablet 5 mg PO QDL Hold Instructions: Resume on 02/02/25. estradiol 0.01 % (0.1 mg/gram) Cream 1 appful VAGINAL 2XWK Hold Instructions: Resume on 02/02/25. Rx Instructions: Estradiol 0.01% Vag Crm (paraban/PG free) Discharge Orders: Discharge Order (Routine); Ordered 02/02/25 Ordered By: Garcia Liu Admission Data Admit Date/Time: 01/31/25 21:45 Attending Provider: Daniel Mart Admit Provider: Nikunj Casillas Primary Care Provider: PCP,NO Other Providers: Nikunj Casillas; Lino Aguiar; Dimitris Peñaloza
[2025-02-02] MEDS: KETAMINE HCL INJ 50 MG/ML 10 ML VIAL ONE (06:36)
[2025-02-02] MEDS: MIDAZOLAM HCL 1 MG/ML 2ML VIAL ONE (06:37)
[2025-02-02] MEDS: NOREPINEPHRINE/D5W 4 MG/250 ML IV ONE (06:57)
[2025-02-02] MEDS: LIDOCAINE 2% LOCAL 50 ML VIAL ONE (06:57)
[2025-02-02] MEDS: PHENYLEPHRINE HCL 25 MG/250 ML NSS IV ONE (06:57)
[2025-02-02] MEDS ORDERED: Nursing to Pharmacy Communication SCH (07:00)
--- NOTE | 2025-02-02 07:09 | XRay Report ---
EXAM: XR chest 1V portable CLINICAL HISTORY: CENTRAL LINE PLACEMENT TECHNIQUE: An X-ray image of the chest is obtained in AP projection. COMPARISON: CR and CT studies done earlier today were reviewed. FINDINGS: Right-sided CVL with its tip at the proximal SVC. Pulmonary Parenchyma: Unchanged left lung middle and lower zones opacities with moderate left pleural effusion and underlying left lung basilar atelectasis. No right lung focal consolidation. No right pleural effusion. Heart and Mediastinum: Stable heart size. Bony Thorax: Unchanged multiple left rib fractures with mild displacement at the left 9th and 10th ribs. Intact left shoulder joint arthropathy is seen. No loosening seen. Soft Tissues: Unchanged left-sided chest wall subcutaneous emphysema. IMPRESSION: 1. Right-sided CVL with its tip at the proximal SVC. 2. Unchanged left lung middle and lower zones opacities with moderate left pleural effusion and underlying left lung basilar atelectasis. 3. Unchanged multiple left rib fractures with mild displacement at the left 9th and 10th ribs. 4. Unchanged left-sided chest wall subcutaneous emphysema. Electronically signed by Kwabena Severino 02-02-2025 07:09 AM
[2025-02-02 07:30] VITALS: TEMP 97.5
[2025-02-02 07:31] VITALS: PULSE 111; RESP 19; O2SAT 99
[2025-02-02] MEDS: MAGNESIUM SULFATE / D5W 1 GM/100 ML BAG IV SCH (07:36)
[2025-02-02] MEDS: ONDANSETRON INJ 2 MG/ML 2 ML VIAL IV STA (07:55)
[2025-02-02] MEDS: ONDANSETRON INJ 2 MG/ML 2 ML VIAL ONE (07:55)
[2025-02-02 08:47] VITALS: BP 145/68
== END 2025-02-02 08:45 | disposition short-term general hospital (02) | DRG 183 ==
LOC: ED 17:02 → 1E 21:45